=== PATIENT | female | born 1935 | race Caucasian/White ===

== ENCOUNTER → 2018-06-04 | Outpatient (CLI) | payer MEDICARE ==
--- NOTE | 2018-06-12 07:54 | MM ---
Reason for exam: screening (asymptomatic). Last mammogram was performed 4 years and 8 months ago. History: Patient is postmenopausal. Benign excisional biopsy of the left breast. Took estrogen for 10 years. Physical Findings: A clinical breast exam by your physician is recommended on an annual basis and results should be correlated with mammographic findings. MG 3D Screening Mammo W/Cad Bilateral CC and MLO view(s) were taken. Prior study comparison: October 15, 2013, mammogram, performed at [place]. September 18, 2012, mammogram, performed at [place]. The breast tissue is extremely dense which could obscure a lesion on mammography. No significant changes when compared with prior studies. ASSESSMENT: Benign, BI-RAD 2 RECOMMENDATION: Routine screening mammogram of both breasts in 1 year.
== END | disposition home or self-care (01) ==
LOC: RADMAMWWP 12:25
PROVIDERS: ATTEND Family Medicine
DX: Z12.31 Encounter for screening mammogram for malignant neoplasm of breast (principal)
CPT/HCPCS: 77063; 77067

== ENCOUNTER → 2018-06-30 | Outpatient (CLI) | payer MEDICARE ==
--- NOTE | 2018-06-30 13:56 | US ---
EXAMINATION TYPE: US carotid duplex BILAT DATE OF EXAM: 06/30/2018 COMPARISON: NONE CLINICAL HISTORY: R55 Syncope and Collapse. EXAM MEASUREMENTS: RIGHT: Peak Systolic Velocity (PSV) cm/sec ----- Right CCA: 84.2 ----- Right ICA: 70.6 ----- Right ECA: 63.3 ICA/CCA ratio: 0.8 RIGHT: End Diastole cm/sec ----- Right CCA: 20.4 ----- Right ICA: 28.7 ----- Right ECA: 8.7 LEFT: Peak Systolic Velocity (PSV) cm/sec ----- Left CCA: 70.9 ----- Left ICA: 65.7 ----- Left ECA: 7.0 ICA/CCA ratio: 0.9 LEFT: End Diastole cm/sec ----- Left CCA: 19.6 ----- Left ICA: 25.1 ----- Left ECA: 7.0 VERTEBRALS (direction of flow): Right Vertebral: Antegrade Left Vertebral: Antegrade Rhythm: Normal grayscale, color Doppler, spectral Doppler imaging performed of the carotid arteries. Waveform analys is does not show significant stenosis. Minimal plaque with no significant velocity elevations. IMPRESSION: No hemodynamic significant stenosis of the proximal internal carotid arteries bilaterall y by Doppler criteria, an indirect measurement of carotid stenosis
== END ==
LOC: RADUSWWP 12:50
PROVIDERS: ATTEND Family Medicine
DX: R55 Syncope and collapse (principal)
CPT/HCPCS: 93880

== ENCOUNTER → 2018-09-16 | Outpatient (CLI) | payer MEDICARE | END | disposition home or self-care (01) | LOC: NEUROMAIN 06:46 | PROVIDERS: ATTEND Psychiatry & Neurology Neurology | DX: Z53.9 Procedure and treatment not carried out, unspecified reason (principal) ==

== ENCOUNTER → 2018-09-28 | Outpatient (CLI) | payer MEDICARE ==
--- NOTE | 2018-09-28 19:24 | MR ---
EXAMINATION TYPE: MR brain and iac wo/w con DATE OF EXAM: 09/28/2018 COMPARISON: None HISTORY: Headaches, Dizziness, Andrei hearing loss TECHNIQUE: Multiplanar, multisequence images of the brain and brainstem, internal auditory canals is performed w ithout and with IV contrast, utilizing 5 mL intravenous Gadavist . Small [id number] imaging throug h the internal auditory canals FINDINGS: Diffusion weighted images demonstrate no evidence of a recent infarct or other diffusion ab normality. There is no extra-axial fluid collection. Periventricular confluent and scattered deep w raghav matter, subcortical hyperintensities are present on inversion recovery and T2-weighted sequences , 510 lesions are present, the largest lesion measures approximately 4 to 5 mm in the parietal lobe o n image 19 on the left. The ventricular system and cisternal spaces are normal in size and appearance . The brain volume is age appropriate, there is age-related atrophy. Midline structures demonstrate normal morphology. The craniocervical junction appears within normal limits. Post contrast images demonstrate no abnormal enhancement. The dural venous sinuses appear pa tent. The visualized sinuses are remarkable for mucoperiosteal thickening in the maxillary sinus on t he left, ethmoid air cells and the globes are intact. Degenerative disc disease noted incidentally in the cervical spine. IMPRESSION: Age-related changes of atrophy and probable chronic small vessel ischemia. Mild sinus dis ease. Degenerative disc changes in the cervical spine suspected.
== END | disposition home or self-care (01) ==
LOC: RADMRIMAIN 16:42
PROVIDERS: ATTEND Psychiatry & Neurology Neurology
DX: G31.1 Senile degeneration of brain, not elsewhere classified (principal); J32.9 Chronic sinusitis, unspecified
CPT/HCPCS: 82565; 70553; 36415; A9585

== ENCOUNTER → 2019-01-26 | Outpatient (CLI) | payer MEDICARE ==
--- NOTE | 2019-01-26 12:47 | US ---
EXAMINATION TYPE: US venous doppler duplex LE RT DATE OF EXAM: 01/26/2019 12:25 PM COMPARISON: NONE CLINICAL HISTORY: Edema R60.0. SIDE PERFORMED: Right TECHNIQUE: The lower extremity deep venous system is examined utilizing real time linear array sonog cindy with graded compression, doppler sonography and color-flow sonography. VESSELS IMAGED: External Iliac Vein (EIV) Common Femoral Vein Deep Femoral Vein Greater Saphenous Vein * Femoral Vein Popliteal Vein Proximal Calf Veins (* superficial vessels) Grayscale, color doppler, spectral doppler imaging performed of the deep veins of the right lower ext remity. There is normal flow, compressibility, vascular waveforms. Right Leg: Negative for DVT IMPRESSION: No sonographic evidence of deep venous thrombosis within the right lower extremity.
== END | disposition home or self-care (01) ==
LOC: RADUSWWP 11:58
PROVIDERS: ATTEND Family Medicine
DX: R60.0 Localized edema (principal)

== ENCOUNTER → 2019-08-17 | Outpatient (CLI) | payer MEDICARE | END | disposition home or self-care (01) | LOC: RADECHMAIN 12:27 | PROVIDERS: ATTEND Family Medicine | DX: R00.1 Bradycardia, unspecified (principal); R00.0 Tachycardia, unspecified | CPT/HCPCS: 93225; 93226 ==

== ENCOUNTER → 2019-09-07 | Outpatient (CLI) | payer MEDICARE ==
--- NOTE | 2019-09-07 16:10 | US ---
EXAMINATION TYPE: US kidneys/renal and bladder DATE OF EXAM: 09/07/2019 COMPARISON: NONE CLINICAL HISTORY: N13.30 Unspecified hydronephrosis. back pain EXAM MEASUREMENTS: Right Kidney: 9.6 x 4.9 x 5.3 cm Left Kidney: 8.8 x 4.0 x 5.1 cm Short waisted elderly female with back pain and limited mobility Right Kidney: No hydronephrosis or masses seen Left Kidney: small in size, hydronephrosis seen with no obvious obstruction Bladder: wnl Bilateral Jets seen: left No nephrolithiasis is seen. No masses are identified. The urinary bladder is anechoic. Bilateral u reteral jets are not seen. IMPRESSION: Moderate left hydronephrosis. No obstructing process seen. CT urogram could evaluate for ureteral obstruction. Slightly asymmetric size of the left kidney and therefore hydronephrosis may be chronic leading to renal atrophy.
== END | disposition home or self-care (01) ==
LOC: RADUSWWP 15:27
PROVIDERS: ATTEND Family Medicine
DX: N13.30 Unspecified hydronephrosis (principal)
CPT/HCPCS: 76770

== ENCOUNTER → 2019-09-13 | Outpatient (CLI) | payer MEDICARE ==
--- NOTE | 2019-09-14 07:47 | CT ---
EXAMINATION TYPE: CT abdomen pelvis wo con DATE OF EXAM: 09/13/2019 COMPARISON: Renal ultrasound dated 09/07/2019 HISTORY: flank pain CT DLP: 228.5 mGycm Automated exposure control for dose reduction was used. TECHNIQUE: Helical acquisition of images was performed from the lung bases through the pelvis. FINDINGS: Exam is markedly limited by patient motion. There is also limitation in evaluation of the s olid viscera and hollow viscera by lack of intravenous and oral contrast. LUNG BASES: Minimal scarring and/or atelectasis in the right middle lobe and lingula. LIVER/GB: Unremarkable unenhanced morphology. Gallbladder is not discretely seen and could be contrac apurva or surgically absent. PANCREAS: Limited evaluation. No gross evidence of ductal dilatation. SPLEEN: Slightly atrophic. ADRENALS: No nodules or thickening. KIDNEYS: There is moderate left-sided hydronephrosis. There is some patient motion and large amount o f bowel loops adjacent to the ureter that make delineation of the mid to distal ureter difficult. The re is a possible 5 mm distal calculus at the level of S2 that could be the etiology of the left-sided hydronephrosis. There is some cortical thinning indicating acute on chronic component. The proximal ureter is dilated. No gross evidence of nephrolithiasis of the kidneys. Again exam is markedly limite d by patient motion. FREE AIR: No free air is visualized ADENOPATHY: Markedly limited evaluation for adenopathy given marked degree colonic fecal stasis and relative paucity of intra-abdominal fat as well as lack of intravenous contrast. URINARY BLADDER: No calculi seen in the urinary bladder. OSSEOUS STRUCTURES: Diffuse osseous demineralization. Sclerotic foci within the left acetabulum and left hemipelvis, likely bone islands. Extensive degenerative changes of the lumbar spine with levosco liosis. Grade 1 anterolisthesis of L4 on L5 is likely on a degenerative basis. Extensive facet arthro ever. Straightening of usual lumbar lordosis may be medially on the basis of muscular sprain/spasm o r patient positioning. Moderate degenerative changes of the hips. BOWEL: Surgical clips are noted adjacent to the cecum and are likely on the basis of appendectomy. T here is severe degree colonic fecal stasis and small bowel feces sign indicative of delayed transit t hrough the small bowel. OTHER: Uterus appears surgically absent. IMPRESSION: 1. REDEMONSTRATION OF MODERATE HYDRONEPHROSIS ON THE LEFT WITH SOME CORTICAL RENAL THINNING INDICATIV E OF ACUTE ON CHRONIC COMPONENT. THERE IS MARKED LIMITATION IN EVALUATION OF THE DISTAL URETER DUE TO PATIENT MOTION AND THE URETER CANNOT BE DEFINITIVELY FOLLOWED. THERE IS A POSSIBLE 5 MM DISTAL OBSTR UCTING CALCULUS VERSUS ADJACENT VASCULAR CALCIFICATION. 2. MARKED DEGREE COLONIC FECAL STASIS AND SMALL BOWEL FECES SIGN INDICATIVE OF OVERALL INCREASED RUIZ SIT TIME THROUGHOUT THE BOWEL. 3. 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
== END | disposition home or self-care (01) ==
LOC: RADCTMAIN 17:31
PROVIDERS: ATTEND Urology
DX: N13.30 Unspecified hydronephrosis (principal); N28.89 Other specified disorders of kidney and ureter; K59.8 Other specified functional intestinal disorders; Z88.5 Allergy status to narcotic agent; Z88.6 Allergy status to analgesic agent
CPT/HCPCS: 74176

== ENCOUNTER → 2019-10-20 | Outpatient (CLI) | payer MEDICARE ==
--- NOTE | 2019-10-20 15:16 | BD ---
EXAMINATION TYPE: Axial Bone Density DATE OF EXAM: 10/20/2019 COMPARISON: NONE CLINICAL HISTORY: Z 78.0 Height: 4 FT 11 1/2 IN Weight: 112 FRAX RISK QUESTIONS: Alcohol (3 or more units per day): NO Family History (Parent hip fracture): NO Glucocorticoids (More than 3mos): NO (Ex: prednisone, prednisolone, methylprednisolone, dexamethasone, and hydrocortisone). History of Fracture in Adulthood: NO Secondary Osteoporosis: 1. Type 1 Diabetes: NO 2. Hyperthyroidism: NO 3. Menopause before 45: YES 4. Malnutrition: NO 5. Chronic liver disease: NO Rheumatoid Arthritis: NO Current Tobacco Use: NO RISK FACTORS HISTORY OF: Active: YES Postmenopausal woman: AGE 47 Lost more than 2 inches in height since high school: YES MEDICATIONS: Thyroid Medications: YES Which medication: LEVOTHYROXINE How Long: LONG TIME Osteoporosis Medications: Which medication: How Long: Additional Medications: DOES NOT KNOW MEDS LEVOTHYROXINE Additional History: POOR HISTORIAN EXAM MEASUREMENTS: Bone mineral densitometry was performed using the [employer] System. Bone mineral density as measured about the Lumbar spine is: ----- L1-L4(G/cm2): 1.183 T Score Values are as follows: ----- L2: -1.4 ----- L3: 1.2 ----- L4: 3.0 ----- L1-L4: 0.0 BASELINE Bone mineral density about the R hip (g/cm2): 0.704 Bone mineral density about the L hip (g/cm2): 0.750 T Score values are as follows: -----R Neck: -2.4 -----L Neck: -2.1 -----R Total: -1.8 -----L Total: -1.7 BASELINE IMPRESSION: Osteopenia (T Score between -2.5 and -1). There is slightly increased risk of fracture and the patient may be considered for treatment. Re-Screen 2-5 years. NOTE: T-SCORE=SD OF THE YOUNG ADULT MEAN.
--- NOTE | 2019-10-25 09:26 | MM ---
Reason for exam: screening (asymptomatic). Last mammogram was performed 1 year and 5 months ago. History: Patient is postmenopausal. Benign excisional biopsy of the left breast. Took estrogen for 10 years. Physical Findings: A clinical breast exam by your physician is recommended on an annual basis and results should be correlated with mammographic findings. MG 3D Screening Mammo W/Cad Bilateral CC and MLO view(s) were taken. Prior study comparison: June 04, 2018, bilateral MG 3d screening mammo w/cad. October 15, 2013, mammogram, performed at [place]. Benign appearing bilateral calcifications. No suspicious abnormality. No significant changes when compared with prior studies. ASSESSMENT: Benign, BI-RAD 2 RECOMMENDATION: Routine screening mammogram of both breasts in 1 year.
== END | disposition home or self-care (01) ==
LOC: RADMAMWWP 12:59
PROVIDERS: ATTEND Family Medicine
DX: Z12.31 Encounter for screening mammogram for malignant neoplasm of breast (principal); M85.80 Other specified disorders of bone density and structure, unspecified site; Z78.0 Asymptomatic menopausal state
CPT/HCPCS: 77063; 77067; 77080

== ENCOUNTER → 2019-11-15 | Day surgery (SDC) | payer MEDICARE ==
[2019-11-09 11:29] VITALS: BMI 22.6
--- NOTE | 2019-11-12 16:35 | P.HPIHPCON ---
History of Present Illness H&P Date: 11/22/19 Chief Complaint: left hydronephrosis Ms. Pandya is an 84-year-old female with history of left-sided hydronephrosis. She underwent a cystoscopy demonstrated was a bladder tumor along the posterior bladder wall. Pathology showed high-grade TA bladder cancer . She also underw ent a left retrograde pyelogram that showed severe narrowing at the UPJ with a tortuous proximal ureter. She had complete obstruction at that point with limited contrast going up to the kidney. The wire could not be advanced to the renal pelvis and attempts to pass ureteroscopy was unsuccessful. Given her history of bladder cancer and high-grade obstruction on the left side. I Discussed with her that there is potential that this could be a malignant obstruction. I discussed with her at this point I recommend that she undergoes a left nephrostomy tube with antegrade nephrostogram and will send a cytology from the nephrostomy tube. I discussed pending the finding of the antegrade nephrostogram and the cytology she might require a PCNL to better visualize that area. I also Discussed with her the risk from nephrostomy tube placement which include but not limited to bleeding infection, injury to nearby organs. She understood all the risk and agreed to proceed with left nephrostomy tube placement Consent for Procedure: I have explained the operation/procedure to the patient, including the risks, benefits, side effects, alternative therapies (including not receiving the proposed treatment or service), the likelihood of the patient achieving his/her goals, and potential recuperation problems for the procedure/sedation/analgesia, as well as any blood products, if indicated. I also explained to the patient the risks, benefits and side effects of the alternatives, as well as the risks related to not receiving the proposed procedure, care, treatment, or services. - Constitutional Constitutional: Denies chills, Denies fever - Cardiovascular Cardiovascular: Denies chest pain, Denies leg edema - Respiratory Respiratory: Denies cough with sputum, Denies dyspnea Past Medical History Past Medical History: Osteoarthritis (OA), Sleep Apnea/CPAP/BIPAP Additional Past Medical History / Comment(s): SOME SHORT TERM MEMORY PROBLEMS STARTING ", C PAP MACHINE , " SOME KIDNEY PROBLEMS WITH PAIN -HAVING A TUBE PUT IN " History of Any Multi-Drug Resistant Organisms: None Reported Past Surgical History: Hysterectomy Additional Past Surgical History / Comment(s): CATARACT SURGERY- BILATERAL, C SECTION X2 Past Anesthesia/Blood Transfusion Reactions: No Reported Reaction Smoking Status: Former smoker - Past Family History Mother Family Medical History: No Reported History Medications and Allergies Home Medications Medication Instructions Recorded Confirmed Type Donepezil [Aricept] 5 mg PO HS 11/09/19 11/09/19 History Escitalopram [Lexapro] 5 mg PO 1900 11/09/19 11/09/19 History Levothyroxine Sodium [Synthroid] 50 mcg PO DAILY 11/09/19 11/09/19 History Meloxicam [Mobic] 15 mg PO DAILY 11/09/19 11/09/19 History Omeprazole 20 mg PO 1730 11/09/19 11/09/19 History Allergies Allergy/AdvReac Type Severity Reaction Status Date / Time acetaminophen [From Percocet] Allergy Nausea & Verified 11/09/19 11:00 Vomiting codeine Allergy Nausea & Verified 11/09/19 11:00 Vomiting meperidine [From Demerol] Allergy Nausea & Verified 11/09/19 11:00 Vomiting oxycodone [From Percocet] Allergy Nausea & Verified 11/09/19 11:00 Vomiting Surgical - Exam - General well developed, well nourished, no distress - Respiratory normal expansion, normal respiratory effort - Abdomen Abdomen: soft, non tender - Psychiatric oriented to time, oriented to person, oriented to place Assessment and Plan Assessment: Left sided hydronephrosis will undergo left nephrostomy tube placement
[~2019-11-15] MED LIST: IV FLUID CONTINUATION 400 ML IV ONE; fentaNYL (PF) 50 MCG/ML 2 ML AMP IV ONE
[2019-11-15 10:21] VITALS: TEMP 97.2
[2019-11-15 10:42] LABS: Basophils # (A) 0.1 k/uL (0-0.2); Basophils % (A) 2 %; Eosinophils # (A) 0.2 k/uL (0-0.7); Eosinophils % (A) 3 %; HCT 36.6 % (34.0-46.0); HGB 11.8 gm/dL (11.4-16.0); Lymphocytes % (A) 17 %; MCH 27.6 pg (25.0-35.0); MCHC 32.3 g/dL (31.0-37.0); MCV 85.5 fL (80.0-100.0); Mean Platelet Volume 7.2; Monocytes # (A) 0.5 k/uL (0-1.0); Monocytes % (A) 9 %; Neutrophils # (A) 3.9 k/uL (1.3-7.7); Neutrophils % (A) 67 %; Platelet Count 382 k/uL (150-450); RBC 4.28 m/uL (3.80-5.40); RDW 14.7 % (11.5-15.5); WBC 5.8 k/uL (3.8-10.6)
[2019-11-15 10:46] LABS: Prothrombin Time 10.4 sec (9.0-12.0)
[2019-11-15 10:47] LABS: Calcium 9.8 mg/dL (8.4-10.2); Potassium 4.1 mmol/L (3.5-5.1)
[2019-11-15 12:10] VITALS: BP 168/78; PULSE 56; RESP 18
--- NOTE | 2019-11-15 13:14 | US ---
ULTRASOUND LIMITED PRIOR TO LEFT NEPHROSTOMY: CLINICAL HISTORY: High-grade left obstruction COMPARISON: 09/13/2019, 09/07/2019 FINDINGS: The procedure was explained to the patient. The risks, complications, benefits and alternatives were discussed and any questions were answered. Informed consent was obtained. Patient was placed prone on the ultrasound table and prepped and draped in the usual sterile fashion. Pulmonary ultrasound de monstrated minimal hydronephrosis markedly improved from the prior exam.. Case discussed with referri physician and patient and procedure deferred. IMPRESSION: 1. Marked improvement in the degree of hydronephrosis with minimal hydronephrosis on today's exam.
== END ==
LOC: OR 09:43
PROVIDERS: ATTEND Radiology Diagnostic Radiology
DX: N13.0 Hydronephrosis with ureteropelvic junction obstruction (principal); Z53.9 Procedure and treatment not carried out, unspecified reason; C67.4 Malignant neoplasm of posterior wall of bladder; M19.90 Unspecified osteoarthritis, unspecified site; R41.3 Other amnesia; G47.30 Sleep apnea, unspecified; Z99.89 Dependence on other enabling machines and devices; Z90.710 Acquired absence of both cervix and uterus; Z98.41 Cataract extraction status, right eye; Z98.42 Cataract extraction status, left eye; Z98.890 Other specified postprocedural states; Z87.891 Personal history of nicotine dependence; Z79.899 Other long term (current) drug therapy; Z79.890 Hormone replacement therapy; Z79.1 Long term (current) use of non-steroidal anti-inflammatories (NSAID); Z88.5 Allergy status to narcotic agent
CPT/HCPCS: 80048; 85025; 85610; J0690; J3010; 76942; 88108

== ENCOUNTER → 2020-10-13 | Outpatient (CLI) | payer MEDICARE | END | disposition home or self-care (01) | LOC: LABWHC1 10-12 09:44 | PROVIDERS: ATTEND Nurse Practitioner | DX: Z03.818 Encounter for observation for suspected exposure to other biological agents ruled out (principal) | CPT/HCPCS: U0003; C9803 ==

== ENCOUNTER 2020-12-12 15:34 | Emergency (ER) | payer MEDICARE ==
[2020-12-12 15:39] VITALS: TEMP 98.3
[2020-12-12] MEDS ORDERED: ACETAMINOPHEN TAB 500 MG TAB PO STA (16:15)
--- NOTE | 2020-12-12 17:06 | ED ---
Extremity Problem HPI - General Chief complaint: Extremity Problem,Nontraumatic Stated complaint: Lft hip pain Time Seen by Provider: 12/12/20 16:00 Source: patient, RN notes reviewed Mode of arrival: ambulatory Limitations: no limitations - History of Present Illness Initial comments: 85-year-old female presents emergency Department with chief complaint of left hip pain. Patient states his pain started today. Patient states that she went to walk and states that her tremendously in her left upper leg, hip region. She does admit that she had knee surgery last year and Dr. Carrasco. Patient states that she does have a long history of back pain denies any bowel bladder incontinence or retention or saddle anesthesias or lower shunted paresthesias. She states that she has no pain at rest she states that she can move her leg freely but states only when she puts weight she has pain on the outer aspect of her hip. Patient denies any complaints. Patient was ambulatory upon arrival to emergency department. - Related Data Home Medications Medication Instructions Recorded Confirmed Donepezil [Aricept] 5 mg PO HS 11/09/19 12/12/20 Escitalopram [Lexapro] 5 mg PO DAILY@1200 11/09/19 12/12/20 Levothyroxine Sodium [Synthroid] 50 mcg PO DAILY 11/09/19 12/12/20 Meloxicam [Mobic] 15 mg PO HS 11/09/19 12/12/20 Alendronate Sodium [Fosamax] 70 mg PO SA 12/12/20 12/12/20 Atorvastatin [Lipitor] 10 mg PO DAILY@1200 12/12/20 12/12/20 Cetirizine HCl [Zyrtec] 5 mg PO DAILY 12/12/20 12/12/20 Previous Rx's Medication Instructions Recorded Ibuprofen [Motrin] 600 mg PO Q8HR PRN #20 tab 12/12/20 Allergies Allergy/AdvReac Type Severity Reaction Status Date / Time acetaminophen [From Percocet] Allergy Nausea & Verified 12/12/20 17:45 Vomiting codeine Allergy Nausea & Verified 12/12/20 17:45 Vomiting meperidine [From Demerol] Allergy Nausea & Verified 12/12/20 17:45 Vomiting oxycodone [From Percocet] Allergy Nausea & Verified 12/12/20 17:45 Vomiting Review of Systems ROS Statement: Those systems with pertinent positive or pertinent negative responses have been documented in the HPI. ROS Other: All systems not noted in ROS Statement are negative. Past Medical History Past Medical History: Osteoarthritis (OA), Sleep Apnea/CPAP/BIPAP Additional Past Medical History / Comment(s): SOME SHORT TERM MEMORY PROBLEMS STARTING ", C PAP MACHINE , " SOME KIDNEY PROBLEMS WITH PAIN -HAVING A TUBE PUT IN " History of Any Multi-Drug Resistant Organisms: None Reported Past Surgical History: Hysterectomy Additional Past Surgical History / Comment(s): CATARACT SURGERY- BILATERAL, C SECTION X2 Past Anesthesia/Blood Transfusion Reactions: No Reported Reaction Past Psychological History: Anxiety Smoking Status: Never smoker Past Alcohol Use History: Rare Past Drug Use History: None Reported - Past Family History Mother Family Medical History: No Reported History General Exam Limitations: no limitations General appearance: alert, in no apparent distress Head exam: Present: atraumatic, normocephalic, normal inspection Eye exam: Present: normal appearance, PERRL, EOMI. Absent: scleral icterus, c onjunctival injection, periorbital swelling ENT exam: Present: normal exam, normal oropharynx, mucous membranes moist Neck exam: Present: normal inspection, full ROM. Absent: tenderness, meningismus, lymphadenopathy Respiratory exam: Present: normal lung sounds bilaterally. Absent: respiratory distress, wheezes, rales, rhonchi, stridor Cardiovascular Exam: Present: regular rate, normal rhythm, normal heart sounds. Absent: systolic murmur, diastolic murmur, rubs, gallop, clicks GI/Abdominal exam: Present: soft, normal bowel sounds. Absent: distended, tenderness, guarding, rebound, rigid Extremities exam: Present: other (Lower extremity pulses are equal bilaterally, equal color equal warmth there is no Tenderness no swelling noted patient does have localized tenderness to left hip and with logrolling, tenderness in the low back over the buttocks region) Back exam: Present: full ROM, tenderness, paraspinal tenderness. Absent: vertebral tenderness Neurological exam: Present: reflexes normal. Absent: motor sensory deficit Skin exam: Present: warm, dry, intact, normal color. Absent: rash Course Vital Signs 12/12/20 15:36 Temperature 98.3 F Pulse Rate 66 Respiratory 22 Rate Blood Pressure 161/79 O2 Sat by Pulse 99 Oximetry Medical Decision Making - Medical Decision Making 85-year-old presented for left hip pain. Patient has tenderness over the lateral portion of her left hip consistent with bursitis. Patient x-rays were negative she is neurovascularly intact. Patient states the Tylenol did help her pain. She'll be started on anti-inflammatories will follow-up with her orthopedic surgeon return for any worsening changing symptoms. Disposition Clinical Impression: Hip bursitis, left Disposition: HOME SELF-CARE Condition: Stable Instructions (If sedation given, give patient instructions): Hip Bursitis (ED) Additional Instructions: Please return to the Emergency Department if symptoms worsen or any other concerns. Prescriptions: Ibuprofen [Motrin] 600 mg PO Q8HR PRN #20 tab PRN Reason: Pain Is patient prescribed a controlled substance at d/c from ED?: No Referrals: Nba Poole MD [Primary Care Provider] - 1-2 days Chris Carrasco MD [REFERRING] - 1-2 days Time of Disposition: 18:08
--- NOTE | 2020-12-12 17:26 | XR ---
EXAMINATION TYPE: XR lumbar spine 2 or 3V DATE OF EXAM: 12/12/2020 COMPARISON: NONE HISTORY: Back pain TECHNIQUE: 3 views FINDINGS: There is mild lumbar levoscoliosis. There is multilevel degenerative disc space narrowing w ith spur formation. There is no significant compression deformity. Sacroiliac joints are intact. IMPRESSION: Multilevel spondylosis with levoscoliotic mild deformity. No significant compression frac ture seen. No significant change compared to CT scan of 09/13/2019
--- NOTE | 2020-12-12 17:27 | XR ---
EXAMINATION TYPE: XR Hip LT and AP Pelvis DATE OF EXAM: 12/12/2020 COMPARISON: NONE HISTORY: Hip pain TECHNIQUE: 3 views FINDINGS: The pelvic ring is intact. Proximal left femur and hip joint appear intact. There is no yan dence of a fracture. Sacroiliac joints appear intact. IMPRESSION: Negative pelvis and left hip exam. No fracture seen.
[2020-12-12] MEDS ORDERED: dexAMETHasone 4 MG TAB PO STA (18:07)
[2020-12-12] MEDS ORDERED: IBUPROFEN 600 MG TAB PO STA (18:07)
[2020-12-12 18:37] VITALS: BP 148/77; PULSE 64; RESP 18
== END 2020-12-12 18:37 | disposition home or self-care (01) ==
LOC: EC 15:34
DX: M70.72 Other bursitis of hip, left hip (principal); F41.9 Anxiety disorder, unspecified; G47.33 Obstructive sleep apnea (adult) (pediatric); M19.90 Unspecified osteoarthritis, unspecified site; Z79.1 Long term (current) use of non-steroidal anti-inflammatories (NSAID); Z79.899 Other long term (current) drug therapy; Z88.5 Allergy status to narcotic agent; Z88.6 Allergy status to analgesic agent; Z88.8 Allergy status to other drugs, medicaments and biological substances; Z99.89 Dependence on other enabling machines and devices; Z98.42 Cataract extraction status, left eye; Z98.41 Cataract extraction status, right eye
CPT/HCPCS: 72100; 73502; 99283; J8540

== ENCOUNTER 2021-07-02 18:18 | Emergency (ER) | payer MEDICARE ==
[2021-07-02 18:36] VITALS: BP 126/76; PULSE 60; RESP 18; TEMP 97.8
[2021-07-02] MEDS ORDERED: DIPH,PERTUS(ACELL)TETVAC-LF 0.5 ML VIAL IM ONE (18:41)
--- NOTE | 2021-07-02 18:42 | ED ---
General Adult HPI - General Chief complaint: Fall Stated complaint: fall Time Seen by Provider: 07/02/21 18:22 Source: patient, family, EMS Mode of arrival: EMS Limitations: no limitations - History of Present Illness Initial comments: Patient presents to the ED by ambulance for evaluation status post falling. Patient's son is at bedside with her in the ER. Patient states that she had a mechanical fall while turning with her walker, and she states that she fell backwards hitting the back of her head against the wall. Patient is currently only complaining of having a posterior headache. Patient was placed in a c- collar by EMS. Patient is unsure of LOC. Patient has sustained an occipital scalp laceration per EMS. Patient is unsure of her last tetanus shot. Patient denies focal numbness/weakness/neuro deficit, visual changes, speech difficulty, neck/back/extremity pain, chest pain, dyspnea, dizziness, nausea or vomiting, abdominal pain, or any other symptoms or complaints. Son states that the patient is on anticoagulant medication, but he is not sure which one. - Related Data Home Medications Medication Instructions Recorded Confirmed Donepezil [Aricept] 5 mg PO HS 11/09/19 12/12/20 Escitalopram [Lexapro] 5 mg PO DAILY@1200 11/09/19 12/12/20 Levothyroxine Sodium [Synthroid] 50 mcg PO DAILY 11/09/19 12/12/20 Meloxicam [Mobic] 15 mg PO HS 11/09/19 12/12/20 Alendronate Sodium [Fosamax] 70 mg PO SA 12/12/20 12/12/20 Atorvastatin [Lipitor] 10 mg PO DAILY@1200 12/12/20 12/12/20 Cetirizine HCl [Zyrtec] 5 mg PO DAILY 12/12/20 12/12/20 Previous Rx's Medication Instructions Recorded Ibuprofen [Motrin] 600 mg PO Q8HR PRN #20 tab 12/12/20 Allergies Allergy/AdvReac Type Severity Reaction Status Date / Time acetaminophen [From Percocet] Allergy Nausea & Verified 07/02/21 18:31 Vomiting codeine Allergy Nausea & Verified 07/02/21 18:31 Vomiting meperidine [From Demerol] Allergy Nausea & Verified 07/02/21 18:31 Vomiting oxycodone [From Percocet] Allergy Nausea & Verified 07/02/21 18:31 Vomiting Review of Systems ROS Statement: Those systems with pertinent positive or pertinent negative responses have been documented in the HPI. ROS Other: All systems not noted in ROS Statement are negative. Past Medical History Past Medical History: Osteoarthritis (OA), Sleep Apnea/CPAP/BIPAP Additional Past Medical History / Comment(s): SOME SHORT TERM MEMORY PROBLEMS STARTING ", C PAP MACHINE , " SOME KIDNEY PROBLEMS WITH PAIN -HAVING A TUBE PUT IN " History of Any Multi-Drug Resistant Organisms: None Reported Past Surgical History: Hysterectomy Additional Past Surgical History / Comment(s): CATARACT SURGERY- BILATERAL, C SECTION X2 Past Anesthesia/Blood Transfusion Reactions: No Reported Reaction Past Psychological History: Anxiety Smoking Status: Never smoker Past Alcohol Use History: Rare Past Drug Use History: None Reported - Past Family History Mother Family Medical History: No Reported History General Exam Limitations: no limitations General appearance: alert, in no apparent distress Head exam: Present: other (Left occipital swelling and tenderness with overlying abrasion is noted on examination) Eye exam: Present: normal appearance, PERRL, EOMI ENT exam: Present: mucous membranes moist Neck exam: Present: other (C-collar is in place; trachea is in midline; no step- off deformity is appreciated). Absent: tenderness Respiratory exam: Present: normal lung sounds bilaterally. Absent: respiratory distress, wheezes, rales, rhonchi, stridor, chest wall tenderness Cardiovascular Exam: Present: regular rate, normal rhythm, normal heart sounds, other (Normal radial pulses bilaterally) GI/Abdominal exam: Present: soft. Absent: distended, tenderness, guarding Extremities exam: Present: full ROM, other (Pelvis is stable and nontender; patient has full range of motion of bilateral hips; an abrasion with surrounding tenderness is noted just proximal to the patient's left elbow laterally). Absent: pedal edema Back exam: Present: normal inspection, other (No step-off deformity is appreciated). Absent: tenderness Neurological exam: Present: alert, oriented X3, CN II-XII intact. Absent: motor sensory deficit Psychiatric exam: Present: normal affect, normal mood Skin exam: Present: warm, dry, normal color Course Vital Signs 07/02/21 18:24 Temperature 97.8 F Pulse Rate 60 Respiratory 18 Rate Blood Pressure 126/76 O2 Sat by Pulse 98 Oximetry - Reevaluation(s) Reevaluation #1: 07/02/21 20:23 Patient denies development of any new pain or symptoms while in the ED. Patient remains alert and breathing comfortably. Patient and son are aware the patient's test results/imaging findings, and they both feel comfortable with the patient going home at this time. Patient and son were counseled about head injuries, contusions and abrasions. They were clearly explained return and follow-up instructions. They were instructed to have a low threshold for return to the ED should the patient's symptoms worsen. There were also instructed for the patient to follow up closely with her primary care provider. Patient feels comfortable with this plan. Medical Decision Making - Medical Decision Making Patient's imaging studies are negative for acute traumatic injury. Patient's labs are fairly unremarkable. Patient's tetanus was updated in the ED. Patient's wounds were cleaned and dressed by ED nursing staff. Will discharge patient home with her son at this time. - Lab Data Result diagrams: 07/02/21 18:46 07/02/21 18:46 Lab Results 07/02/21 07/02/21 07/02/21 Range/Units 18:46 18:46 18:46 WBC 9.1 (3.8-10.6) k/uL RBC 3.86 (3.80-5.40) m/uL Hgb 11.6 (11.4-16.0) gm/dL Hct 34.0 (34.0-46.0) % MCV 88.0 (80.0-100.0) fL MCH 30.0 (25.0-35.0) pg MCHC 34.0 (31.0-37.0) g/dL RDW 13.4 (11.5-15.5) % Plt Count 371 (150-450) k/uL MPV 6.9 Neutrophils % 73 % Lymphocytes % 13 % Monocytes % 7 % Eosinophils % 3 % Basophils % 1 % Neutrophils # 6.7 (1.3-7.7) k/uL Lymphocytes # 1.2 (1.0-4.8) k/uL Monocytes # 0.7 (0-1.0) k/uL Eosinophils # 0.3 (0-0.7) k/uL Basophils # 0.1 (0-0.2) k/uL PT 10.5 (9.0-12.0) sec INR 1.0 (<1.2) APTT 24.8 (22.0-30.0) sec Sodium 133 L (137-145) mmol/L Potassium 4.4 (3.5-5.1) mmol/L Chloride 104 (98-107) mmol/L Carbon Dioxide 21 L (22-30) mmol/L Anion Gap 8 mmol/L BUN 39 H (7-17) mg/dL Creatinine 1.16 H (0.52-1.04) mg/dL Est GFR (CKD-EPI)AfAm 50 (>60 ml/min/1.73 sqM) Est GFR (CKD-EPI)NonAf 44 (>60 ml/min/1.73 sqM) Glucose 124 H (74-99) mg/dL Calcium 8.8 (8.4-10.2) mg/dL Total Bilirubin 0.4 (0.2-1.3) mg/dL AST 33 (14-36) U/L ALT 14 (4-34) U/L Alkaline Phosphatase 130 H (38-126) U/L Total Protein 6.0 L (6.3-8.2) g/dL Albumin 3.5 (3.5-5.0) g/dL - Radiology Data Radiology results: report reviewed (Noncontrast CT brain and cervical spine are both negative for acute findings; chest, pelvis and left elbow x-rays are all negative for acute findings) Disposition Clinical Impression: Fall, Head injury, Contusion of upper limb, left, Abrasion of left upper extremity, Scalp abrasion Disposition: HOME SELF-CARE Condition: Stable Instructions (If sedation given, give patient instructions): Abrasion (ED), Fall Prevention (ED), Head Injury (ED), Contusion in Adults (ED) Additional Instructions: Return to the ER immediately should you develop new or worsening pain or symptoms. Follow up closely with your primary care provider. Is patient prescribed a controlled substance at d/c from ED?: No Referrals: Nba Poole MD [Primary Care Provider] - 1-2 days Time of Disposition: 20:28
[2021-07-02 18:57] LABS: Basophils # (A) 0.1 k/uL (0-0.2); Basophils % (A) 1 %; Eosinophils # (A) 0.3 k/uL (0-0.7); Eosinophils % (A) 3 %; HGB 11.6 gm/dL (11.4-16.0); Lymphocytes # (A) 1.2 k/uL (1.0-4.8); Lymphocytes % (A) 13 %; Mean Platelet Volume 6.9; Monocytes # (A) 0.7 k/uL (0-1.0); Monocytes % (A) 7 %; Neutrophils # (A) 6.7 k/uL (1.3-7.7); Neutrophils % (A) 73 %; Platelet Count 371 k/uL (150-450); RBC 3.86 m/uL (3.80-5.40); RDW 13.4 % (11.5-15.5); WBC 9.1 k/uL (3.8-10.6)
[2021-07-02 19:05] LABS: Partial Thromboplastin Time 24.8 sec (22.0-30.0); Prothrombin Time 10.5 sec (9.0-12.0)
[2021-07-02 19:17] LABS: Albumin 3.5 g/dL (3.5-5.0); Calcium 8.8 mg/dL (8.4-10.2); Potassium 4.4 mmol/L (3.5-5.1); Total Bilirubin 0.4 mg/dL (0.2-1.3)
--- NOTE | 2021-07-02 19:20 | CT ---
EXAMINATION TYPE: CT brain reema kelley DATE OF EXAM: 07/02/2021 COMPARISON: None HISTORY: fall, posterior head lac CT DLP: 1311.1 mGycm Automated exposure control for dose reduction was used. There is cerebral cortical atrophy. There is no mass effect nor midline shift. There is no sign of in tracranial hemorrhage. Calvarium is intact. The skull base is intact. There is normal aeration of the mastoid sinuses. External auditory canals appear normal. The cervical vertebra show subluxation deformities at C3-4 and C4-5 that measure 3 to 4 mm. The facet joints are intact. There is no compression fracture. I see no focal bone destruction. There is multi level cervical facet arthropathy. IMPRESSION: Cerebral atrophy. No acute intracranial abnormality. Degenerative spondylolisthesis at C3-4 and C4-5. No fracture seen of the cervical spine. Multilevel s pondylotic changes.
--- NOTE | 2021-07-02 20:05 | XR ---
EXAMINATION TYPE: DATE OF EXAM: 07/02/2021 COMPARISON: NONE HISTORY: Fall. Pain TECHNIQUE: Single view FINDINGS: Pelvic ring is intact. Proximal femurs and hip joints are intact. Sacroiliac joints are int act. There is slight lumbar levoscoliosis. IMPRESSION: No acute abnormality of the pelvis. No fracture. Mild lumbar levoscoliosis. Spondylotic changes in the lower lumbar spine.
--- NOTE | 2021-07-02 20:06 | XR ---
EXAMINATION TYPE: XR chest 1V portable DATE OF EXAM: 07/02/2021 COMPARISON: NONE HISTORY: Fall. Pain TECHNIQUE: Single view FINDINGS: There is no heart failure nor confluent pneumonic infiltrate. Costophrenic angles are clear . Thoracic aorta is atheromatous. IMPRESSION: No active cardiopulmonary disease.
--- NOTE | 2021-07-02 20:08 | XR ---
EXAMINATION TYPE: XR elbow complete LT DATE OF EXAM: 07/02/2021 COMPARISON: NONE HISTORY: Pain TECHNIQUE: 3 views FINDINGS: I see no fracture nor dislocation. Elbow joint spaces are fairly normal. There is no sign o f elbow joint effusion. Radial head is intact. IMPRESSION: No fracture seen.
[2021-07-02] MEDS ORDERED: BACITRACIN OINT 1 EACH PACKET TOPICAL ONE (20:26)
== END 2021-07-02 20:35 | disposition home or self-care (01) ==
LOC: EC 18:18
DX: S00.01XA Abrasion of scalp, initial encounter (principal); S40.022A Contusion of left upper arm, initial encounter; Z23 Encounter for immunization; F41.9 Anxiety disorder, unspecified; M19.90 Unspecified osteoarthritis, unspecified site; Z88.5 Allergy status to narcotic agent; Z90.710 Acquired absence of both cervix and uterus; W22.8XXA Striking against or struck by other objects, initial encounter
CPT/HCPCS: 36415; 70450; 71045; 72125; 72170; 80053; 85025; 85610; 85730; 90471; 90715; 99284

== ENCOUNTER → 2021-07-25 | Outpatient (CLI) | payer MEDICARE | END | disposition home or self-care (01) | LOC: LABWHC1 16:31 | PROVIDERS: ATTEND Nurse Practitioner | DX: Z20.822 Contact with and (suspected) exposure to COVID-19 (principal); R06.09 Other forms of dyspnea | CPT/HCPCS: 87502; U0003; C9803 ==

== ENCOUNTER → 2021-07-25 | Outpatient (CLI) | payer MEDICARE ==
--- NOTE | 2021-07-26 09:30 | XR ---
EXAMINATION TYPE: XR chest 2V DATE OF EXAM: 07/25/2021 COMPARISON: Chest x-ray 07/02/2021 HISTORY: Shortness of breath with exertion TECHNIQUE: Frontal and lateral views of the chest are obtained. FINDINGS: There is no focal air space opacity, pleural effusion, or pneumothorax seen. The cardiac silhouette size is within normal limits. Prominent lung volume may be indicative of underlying COPD. Aorta is dense. The osseous structures are intact, there is thoracic spondylosis. IMPRESSION: No acute cardiopulmonary process.
--- NOTE | 2021-07-26 09:37 | XR ---
2 view abdomen HISTORY: R 10.9, R06.09 2 views of the abdomen, no comparison There is a scoliotic curvature to the visualized spine with degenerative disc changes in the lumbar s pine. Lung bases are clear, hyperinflation suspected. No evident bowel obstruction or pneumoperitoneu m. Probable phleboliths, vascular calcifications noted within the pelvis. IMPRESSION: Nonobstructive bowel gas pattern. Scoliosis with associated degenerative disc disease.
== END | disposition home or self-care (01) ==
LOC: RADXRMAIN 16:43
PROVIDERS: ATTEND Nurse Practitioner
DX: R06.02 Shortness of breath (principal)
CPT/HCPCS: 71046; 74019

== ENCOUNTER → 2021-11-30 | Outpatient (CLI) | payer MEDICARE ==
--- NOTE | 2021-12-01 07:52 | CT ---
EXAMINATION TYPE: CT urogram wo/w con CT DLP: 687.7 mGycm, Automated exposure control for dose reduction was used. DATE OF EXAM: 11/30/2021 3:30 PM COMPARISON: CT abdomen pelvis most recent from 09/13/2019 CLINICAL INDICATION:Female, 86 years old with history of C67.9 bladder ca, bladder ca TECHNIQUE: Urogram with unenhanced, nephrographic and excretory phase imaging of the abdomen and pelvis using tw o doses of 70 cc of IV contrast for a total dose of one 140 cc of IV contrast. Coronal and sagittal r eformats were performed. One or more CT dose reduction strategies were utilized during this examinati on. 2D and 3D reconstructions are performed to assist visualization of the urinary tract on a [employer] workstation. FINDINGS: GENITOURINARY: RIGHT KIDNEY AND URETER: No calculi. No hydronephrosis or hydroureter. No renal mass or other lesions . No urothelial lesions: no filling defect, dilation, stricture or wall thickening. LEFT KIDNEY AND URETER: There is a enhancing mass within the left renal sinus measuring 3.5 x 2.8 x 3 .1 cm. The left renal pelvis and left ureter demonstrate soft tissue which appears contiguous with th e renal sinus mass. There is moderate left hydronephrosis without evidence of renal calculus. No sarah yed contrast is seen excreted from the left kidney. The remainder of the left ureter is not evaluated due to lack of excretion of contrast within the left system URINARY BLADDER: Layering excreted contrast is seen within the posterior bladder. The anterior bladde r wall is suboptimally evaluated given lack of contrast adjacent to it. No evidence of calculus. A fe w trabeculations are identified in the visualized posterior wall. REPRODUCTIVE: Uterus is not definitively visualized. ABDOMEN LIVER: Unremarkable. GALLBLADDER AND BILE DUCTS: Unremarkable PANCREAS: Unremarkable. SPLEEN: Unremarkable. ADRENAL GLANDS: Adrenal gland nodule stable back to 2019 measuring 1.2 cm. Additional soft tissue att enuation near the left adrenal gland is suboptimally evaluated given motion. STOMACH AND BOWEL: No evidence of bowel obstruction. PERITONEUM: No evidence of pneumoperitoneum, free fluid, or adenopathy. VASCULATURE: Atherosclerotic calcifications are present throughout the abdominal aorta and its branch es. MUSCULOSKELETAL: Multilevel degenerative changes are present throughout the thoracolumbar spine. Left iliac bony islands present. There is levoscoliosis apex at L4 SOFT TISSUE/ABDOMINAL WALL: Unremarkable. LOWER CHEST: Similar consolidation changes near the medial aspect of the lingula and middle lobe. LYMPH NODES: There is retroperitoneal lymphadenopathy is pronounced along the left aspect of the aort a measuring up to 1.2 cm in short axis. IMPRESSION: 1. 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 Additionally multiple retroperitoneal enlarged lymph nodes are present. These findings are c oncerning for primary malignancy with metastatic disease to the surrounding lymph nodes. 2. Moderate Left hydronephrosis or excreted IV contrast seen within left renal collecting system like ly secondary to obstruction from #1. 3. Limited evaluation of bladder due to opacification with excreted IV contrast. Few trabeculations s uggested. Consider direct visualization. 4. Nodularity to the left adrenal gland stable back to 2019.
== END | disposition home or self-care (01) ==
LOC: RADCTMAIN 13:10
PROVIDERS: ATTEND Urology
DX: C67.9 Malignant neoplasm of bladder, unspecified (principal); N13.30 Unspecified hydronephrosis; E27.8 Other specified disorders of adrenal gland; R59.0 Localized enlarged lymph nodes
CPT/HCPCS: 82565; 74400; 84520; 74178; 36415; Q9967

== ENCOUNTER 2021-12-26 09:58 | Observation (INO) | payer MEDICARE ==
[2021-12-26] MEDS ORDERED: SODIUM CHLORIDE 0.9% 1,000 ML IV STA (10:05)
--- NOTE | 2021-12-26 10:10 | ED ---
General Adult HPI - General Chief complaint: Arrhythmia/Palpitations Stated complaint: Fall Time Seen by Provider: 12/26/21 09:58 Source: patient, EMS, RN notes reviewed, old records reviewed Limitations: no limitations - History of Present Illness Initial comments: This is an 86-year-old female presents emergency Department complaining of being dizzy this morning and falling twice. Patient states she hurt her neck a little but she doesn't know if she hit on the floor she states she might of hit her head but is unsure. Patient complains of a little right lateral rib pain. Patient denies any abdominal pain. Patient denies any extremity pain. Patient states her lower back on the right also hurts a little. Patient is poor historian and she is very hard of hearing. - Related Data Home Medications Medication Instructions Recorded Confirmed Escitalopram [Lexapro] 5 mg PO DAILY 11/09/19 12/26/21 Levothyroxine Sodium [Synthroid] 50 mcg PO DAILY 11/09/19 12/26/21 Atorvastatin [Lipitor] 10 mg PO DAILY 12/12/20 12/26/21 Cephalexin [Keflex] 500 mg PO BID 12/26/21 12/26/21 Donepezil [Aricept] 10 mg PO DAILY 12/26/21 12/26/21 Ferrous Sulfate [Feosol] 325 mg PO DAILY 12/26/21 12/26/21 Meloxicam [Mobic] 7.5 mg PO HS 12/26/21 12/26/21 Allergies Allergy/AdvReac Type Severity Reaction Status Date / Time acetaminophen [From Percocet] Allergy Nausea & Verified 12/26/21 11:04 Vomiting codeine Allergy Nausea & Verified 12/26/21 11:04 Vomiting meperidine [From Demerol] Allergy Nausea & Verified 12/26/21 11:04 Vomiting oxycodone [From Percocet] Allergy Nausea & Verified 12/26/21 11:04 Vomiting Review of Systems ROS Statement: Those systems with pertinent positive or pertinent negative responses have been documented in the HPI. ROS Other: All systems not noted in ROS Statement are negative. Past Medical History Past Medical History: Osteoarthritis (OA), Sleep Apnea/CPAP/BIPAP Additional Past Medical History / Comment(s): SOME SHORT TERM MEMORY PROBLEMS STARTING ", C PAP MACHINE , " SOME KIDNEY PROBLEMS WITH PAIN -HAVING A TUBE PUT IN " History of Any Multi-Drug Resistant Organisms: None Reported Past Surgical History: Hysterectomy Additional Past Surgical History / Comment(s): CATARACT SURGERY- BILATERAL, C SECTION X2 Past Anesthesia/Blood Transfusion Reactions: No Reported Reaction Past Psychological History: Anxiety Smoking Status: Never smoker Past Alcohol Use History: Rare Past Drug Use History: None Reported - Past Family History Mother Family Medical History: No Reported History General Exam - General Exam Comments Initial Comments: GENERAL: Patient is well-developed and well-nourished. Patient is nontoxic and well- hydrated and is in mild distress. No signs of any head trauma ENT: Neck is soft and supple. No significant lymphadenopathy is noted. Oropharynx is clear. Moist mucous membranes. Patient has tenderness on the right side of her neck. There is no spinous process tenderness EYES: The sclera were anicteric and conjunctiva were pink and moist. Extraocular movements were intact and pupils were equal round and reactive to light. Eyelids were unremarkable. PULMONARY: Unlabored respirations. Good breath sounds bilaterally. No audible rales rho nchi or wheezing was noted. CARDIOVASCULAR: There is a regular rate and rhythm without any murmurs gallops or rubs. ABDOMEN: Soft and nontender with normal bowel sounds. SKIN: Skin is clear with no lesions or rashes and otherwise unremarkable. NEUROLOGIC: Patient is alert and oriented x3. Cranial nerves II through XII are grossly intact. Motor and sensory are also intact. Normal speech, volume and content. Symmetrical smile. MUSCULOSKELETAL: Normal extremities with adequate strength and full range of motion. No lower extremity swelling or edema. No calf tenderness. LYMPHATICS: No significant lymphadenopathy is noted PSYCHIATRIC: Normal psychiatric evaluation. Limitations: no limitations Course Vital Signs 12/26/21 12/26/21 09:59 10:20 Pulse Rate 150 H 65 Respiratory 18 Rate Blood Pressure 78/63 O2 Sat by Pulse 98 Oximetry Medical Decision Making - Medical Decision Making EKG shows atrial fibrillation with rapid ventricular response at 154 bpm QRS is 77 QT interval is 264 QTC is 351 per patient's EKG shows no ST segment elevation or depression. Repeat EKG after patient converted shows sinus rhythm at 65 bpm RI interval is 149 QRS is 83 QT interval 400 QTC is 411. Patient's EKG shows no ST segment elevation or depression. Patient's son arrived and stated that her blood pressure is normally very low typically around 90 systolic. Patient's chest x-ray showed no acute abnormality. Patient's head CT and C-spine showed no acute abnormality. I spoke with Dr. Poole he agreed to admit the patient admitted the patient I wrote admitting orders I consult to cardiology. - Lab Data Result diagrams: 12/26/21 10:15 12/26/21 10:15 Lab Results 12/26/21 12/26/21 12/26/21 Range/Units 10:15 10:15 10:15 WBC 13.8 H (3.8-10.6) k/uL RBC 3.92 (3.80-5.40) m/uL Hgb 10.1 L (11.4-16.0) gm/dL Hct 31.3 L (34.0-46.0) % MCV 80.0 (80.0-100.0) fL MCH 25.9 (25.0-35.0) pg MCHC 32.3 (31.0-37.0) g/dL RDW 13.0 (11.5-15.5) % Plt Count 638 H (150-450) k/uL MPV 6.5 Neutrophils % 84 % Lymphocytes % 7 % Monocytes % 6 % Eosinophils % 2 % Basophils % 1 % Neutrophils # 11.6 H (1.3-7.7) k/uL Lymphocytes # 0.9 L (1.0-4.8) k/uL Monocytes # 0.8 (0-1.0) k/uL Eosinophils # 0.2 (0-0.7) k/uL Basophils # 0.1 (0-0.2) k/uL Hypochromasia Slight PT 10.7 (9.0-12.0) sec INR 1.0 (<1.2) APTT 22.0 (22.0-30.0) sec Sodium 130 L (137-145) mmol/L Potassium 4.5 (3.5-5.1) mmol/L Chloride 97 L (98-107) mmol/L Carbon Dioxide 24 (22-30) mmol/L Anion Gap 9 mmol/L BUN 24 H (7-17) mg/dL Creatinine 1.02 (0.52-1.04) mg/dL Est GFR (CKD-EPI)AfAm 59 (>60 ml/min/1.73 sqM) Est GFR (CKD-EPI)NonAf 51 (>60 ml/min/1.73 sqM) Glucose 104 H (74-99) mg/dL Calcium 8.8 (8.4-10.2) mg/dL Magnesium 2.0 (1.6-2.3) mg/dL Total Bilirubin 0.6 (0.2-1.3) mg/dL AST 23 (14-36) U/L ALT 13 (4-34) U/L Alkaline Phosphatase 114 (38-126) U/L Troponin I (0.000-0.034) ng/mL Total Protein 6.0 L (6.3-8.2) g/dL Albumin 3.2 L (3.5-5.0) g/dL TSH 0.960 (0.465-4.680) mIU/L 12/26/21 Range/Units 10:15 WBC (3.8-10.6) k/uL RBC (3.80-5.40) m/uL Hgb (11.4-16.0) gm/dL Hct (34.0-46.0) % MCV (80.0-100.0) fL MCH (25.0-35.0) pg MCHC (31.0-37.0) g/dL RDW (11.5-15.5) % Plt Count (150-450) k/uL MPV Neutrophils % % Lymphocytes % % Monocytes % % Eosinophils % % Basophils % % Neutrophils # (1.3-7.7) k/uL Lymphocytes # (1.0-4.8) k/uL Monocytes # (0-1.0) k/uL Eosinophils # (0-0.7) k/uL Basophils # (0-0.2) k/uL Hypochromasia PT (9.0-12.0) sec INR (<1.2) APTT (22.0-30.0) sec Sodium (137-145) mmol/L Potassium (3.5-5.1) mmol/L Chloride (98-107) mmol/L Carbon Dioxide (22-30) mmol/L Anion Gap mmol/L BUN (7-17) mg/dL Creatinine (0.52-1.04) mg/dL Est GFR (CKD-EPI)AfAm (>60 ml/min/1.73 sqM) Est GFR (CKD-EPI)NonAf (>60 ml/min/1.73 sqM) Glucose (74-99) mg/dL Calcium (8.4-10.2) mg/dL Magnesium (1.6-2.3) mg/dL Total Bilirubin (0.2-1.3) mg/dL AST (14-36) U/L ALT (4-34) U/L Alkaline Phosphatase (38-126) U/L Troponin I 0.018 (0.000-0.034) ng/mL Total Protein (6.3-8.2) g/dL Albumin (3.5-5.0) g/dL TSH (0.465-4.680) mIU/L Disposition Clinical Impression: Atrial fibrillation with rapid ventricular response, Cervical strain, Near syncope Disposition: ADMITTED IP TO THIS HOSP Referrals: Nba Poole MD [Primary Care Provider] - 1-2 days Time of Disposition: 12:48
[2021-12-26 10:24] LABS: Basophils # (A) 0.1 k/uL (0-0.2); Basophils % (A) 1 %; Eosinophils # (A) 0.2 k/uL (0-0.7); Eosinophils % (A) 2 %; HCT 31.3 % (34.0-46.0); HGB 10.1 gm/dL (11.4-16.0); Hypochromasia Slight; Lymphocytes # (A) 0.9 k/uL (1.0-4.8); Lymphocytes % (A) 7 %; MCH 25.9 pg (25.0-35.0); MCHC 32.3 g/dL (31.0-37.0); Mean Platelet Volume 6.5; Monocytes # (A) 0.8 k/uL (0-1.0); Monocytes % (A) 6 %; Neutrophils # (A) 11.6 k/uL (1.3-7.7); Neutrophils % (A) 84 %; Platelet Count 638 k/uL (150-450); RBC 3.92 m/uL (3.80-5.40); WBC 13.8 k/uL (3.8-10.6)
--- NOTE | 2021-12-26 10:56 | XR ---
EXAMINATION TYPE: XR chest 2V DATE OF EXAM: 12/26/2021 COMPARISON: Chest x-ray July 25, 2021 HISTORY: Dysrhythmia. TECHNIQUE: Frontal and lateral views of the chest are obtained. FINDINGS: There are chronic parenchymal changes without suspicious focal air space opacity, pleural effusion, or pneumothorax seen. The cardiac silhouette size is mildly enlarged. The osseous struct ures are demineralized. IMPRESSION: Mild cardiomegaly and chronic changes without acute pulmonary process.
[2021-12-26 10:57] LABS: Prothrombin Time 10.7 sec (9.0-12.0)
[2021-12-26 11:05] LABS: Albumin 3.2 g/dL (3.5-5.0); Calcium 8.8 mg/dL (8.4-10.2); Potassium 4.5 mmol/L (3.5-5.1); Total Bilirubin 0.6 mg/dL (0.2-1.3)
--- NOTE | 2021-12-26 12:20 | CT ---
EXAMINATION TYPE: CT brain reema wo con DATE OF EXAM: 12/26/2021 COMPARISON: 07/02/2021 HISTORY: Fall, dizziness pain in head and neck, a fib CT DLP: 1257.[address] of the brain was performed. The ventricles, basal cisterns and sulci overlying the cerebral convexities demonstrate mild enlargem ent. There is no evidence for intracranial hemorrhage or sulcal effacement. There is decreased attenuatio n about the periventricular white matter and deep white matter of both cerebral hemispheres, compatib le with chronic small vessel ischemia. No mass effects are seen. If symptoms persist consider MRI. Osseous calvarium is intact. IMPRESSION: 1. Age related atrophic and chronic small vessel ischemic change without acute intracranial process seen at this time. CT Cervical Spine: Unenhanced CT of the cervical spine was performed with bone and soft tissue window settings submitted . Coronal and sagittal reconstruction is obtained. Unchanged from prior study is anterior subluxation of C4 on C5 approximately 3.5 mm. No acute subluxa tion is seen. Degenerative changes cervical apophyseal joints. No evidence for acute cervical fractur e . Scattered degenerative disc disease and spondylosis. Biapical scarring. IMPRESSION: 1. No evidence for acute fracture or subluxation of the cervical spine.
[2021-12-26] MEDS ORDERED: NITROGLYCERIN SL TABS 0.4 MG TAB SUBLINGUAL PRN (12:48)
--- NOTE | 2021-12-26 15:51 | P.HPIM ---
<Micah,Disha - Last Filed: 12/26/21 15:21> History of Present Illness H&P Date: 12/26/21 Chief Complaint: Arrhythmia Patient is a pleasantly confused 86-year-old female, presented to the emergency room with dizziness and falls. Patient was found to be in atrial fibrillation with rapid ventricular response, patient converted to normal sinus rhythm. Patient is a poor historian, unsure of how she fell but does report some neck pain and right lateral rib pain. CT of brain and cervical spine was negative for acute process. Chest x-ray shows mild cardiomegaly and chronic changes without acute pulmonary process. Cardiology was consulted. Patient has a pertinent medical history of osteoarthritis, sleep apnea, anxiety, and dementia. Patient recently had a CT urogram that found left renal sinus enhancing mass suggestive of primary malignancy with metastatic disease to the surrounding lymph nodes. 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 She was scheduled for for surgery with urology this Friday. Urology was consulted. Patient was seen and evaluated in ER, was unable to recall why she came to the ER. Only complaint is being hungry, will order diet. Review of Systems Patient with history of dementia, no family in the room. Poor historian, unable to answer questions. Past Medical History Past Medical History: Dementia, Osteoarthritis (OA), Sleep Apnea/CPAP/BIPAP Additional Past Medical History / Comment(s): SOME SHORT TERM MEMORY PROBLEMS STARTING ", C PAP MACHINE , " SOME KIDNEY PROBLEMS WITH PAIN -HAVING A TUBE PUT IN " History of Any Multi-Drug Resistant Organisms: None Reported Past Surgical History: Hysterectomy Additional Past Surgical History / Comment(s): CATARACT SURGERY- BILATERAL, C SECTION X2 Past Anesthesia/Blood Transfusion Reactions: No Reported Reaction Past Psychological History: Anxiety Smoking Status: Never smoker Past Alcohol Use History: Rare Past Drug Use History: None Reported - Past Family History Mother Family Medical History: No Reported History Additional Family Medical History / Comment(s): Mother lived to be 101 years old. Father Family Medical History: No Reported History Additional Family Medical History / Comment(s): Father lived to be 93 yrs old. Medications and Allergies Home Medications Medication Instructions Recorded Confirmed Type Escitalopram [Lexapro] 5 mg PO DAILY 11/09/19 12/26/21 History Levothyroxine Sodium [Synthroid] 50 mcg PO DAILY 11/09/19 12/26/21 History Atorvastatin [Lipitor] 10 mg PO DAILY 12/12/20 12/26/21 History Cephalexin [Keflex] 500 mg PO BID 12/26/21 12/26/21 History Donepezil [Aricept] 10 mg PO DAILY 12/26/21 12/26/21 History Ferrous Sulfate [Iron (65 MG 325 mg PO DAILY 12/26/21 12/26/21 History Elemental)] Meloxicam [Mobic] 7.5 mg PO HS 12/26/21 12/26/21 History Metoprolol Tartrate [Lopressor] 12.5 mg PO BID 30 Days #60 tab 12/27/21 Rx Allergies Allergy/AdvReac Type Severity Reaction Status Date / Time acetaminophen [From Percocet] Allergy Nausea & Verified 12/26/21 11:04 Vomiting codeine Allergy Nausea & Verified 12/26/21 11:04 Vomiting meperidine [From Demerol] Allergy Nausea & Verified 12/26/21 11:04 Vomiting oxycodone [From Percocet] Allergy Nausea & Verified 12/26/21 11:04 Vomiting Physical Exam Vitals: Vital Signs Pulse Pulse Resp BP Pulse Ox 12/26/21 13:05 61 18 97/59 99 12/26/21 10:20 65 12/26/21 10:15 140 H 12/26/21 09:59 150 H 18 78/63 98 Intake and Output 12/26/21 12/26/21 12/26/21 06:59 14:59 22:59 Other: Weight 54.431 kg - Constitutional General appearance: no acute distress - EENT Eyes: EOMI, PERRLA ENT: normal oropharynx Ears: bilateral: normal - Neck Neck: normal ROM Carotids: bilateral: upstroke normal Thyroid: bilateral: normal size - Respiratory Respiratory: bilateral: diminished - Cardiovascular Heart rate: 70 Rhythm: regular Heart sounds: normal: S1, S2 radial pulse Peripheral Pulses: bilateral: Normal - Gastrointestinal General gastrointestinal: normal bowel sounds, soft - Integumentary Bruising noted Integumentary: normal - Neurologic Neurologic: focal deficits - Musculoskeletal Musculoskeletal: generalized weakness - Psychiatric Patient is alert and oriented to self, unable to follow simple commands or answer questions appropriately. Easily confused Results CBC & Chem 7: 12/26/21 10:15 12/26/21 10:15 Labs: Abnormal Lab Results - Last 24 Hours (Table) 12/26/21 12/26/21 12/26/21 Range/Units 10:15 10:15 13:03 WBC 13.8 H (3.8-10.6) k/uL Hgb 10.1 L (11.4-16.0) gm/dL Hct 31.3 L (34.0-46.0) % Plt Count 638 H (150-450) k/uL Neutrophils # 11.6 H (1.3-7.7) k/uL Lymphocytes # 0.9 L (1.0-4.8) k/uL Sodium 130 L (137-145) mmol/L Chloride 97 L (98-107) mmol/L BUN 24 H (7-17) mg/dL Glucose 104 H (74-99) mg/dL Troponin I 0.054 H* (0.000-0.034) ng/mL Total Protein 6.0 L (6.3-8.2) g/dL Albumin 3.2 L (3.5-5.0) g/dL Chest x-ray: report reviewed Thrombosis Risk Factor Assmnt - DVT/VTE Prophylaxis DVT/VTE Prophylaxis: Contraindicated - See note (History of hematuria secondary to renal cancer) - Choose All That Apply Any of the Below Risk Factors Present?: Yes Other Risk Factors: Yes Each Risk Factor Represents 2 Points: Malignancy Each Risk Factor Represents 3 Points: Age 75 years or older Other congenital or acquired thrombophilia - If yes, enter type in comment: No Thrombosis Risk Factor Assessment Total Risk Factor Score: 5 Thrombosis Risk Factor Assessment Level: High Risk Assessment and Plan Assessment: Atrial fibrillation with rapid ventricular response Hypotension Falls at home Newly diagnosed Renal cancer, history of hematuria Dementia Hypothyroidism Hyperlipidemia Anxiety Osteoarthritis Obstructive sleep apnea History of GERD Plan: Patient is currently in sinus rhythm, awaiting cardiology recommendations Had surgery scheduled for Friday, urology consulted Has history of hematuria secondary to renal cancer, will wait for anticoagulant recommendations Will resume home medications Continue to monitor vital signs and cardiac rhythm Further recommendations to come based on patient's clinical course Full code Time with Patient: Greater than 30 <Nba Poole - Last Filed: 01/03/22 19:41> History of Present Illness I have personally seen and examined the patient, reviewed the documentation and agree with the assessment and plan as written. Number of minutes spent on the visit: Greater than 15. Results CBC & Chem 7: 12/27/21 08:33 12/27/21 08:33
[2021-12-26 17:57] LABS: Appearance,Urine Cloudy (Clear); Bilirubin,Urine Negative (Negative); Blood,Urine Large (Negative); Budding Yeast,Urine Few /hpf; Color,Urine Yellow; Glucose,Urine (UA) Negative (Negative); Ketones,Urine Negative (Negative); Leukocyte Esterase,Urine Large (Negative); Nitrite,Urine Negative (Negative); PH, Urine 6.5 (5.0-8.0); Protein,Urine 1+ (Negative); RBC,Urine 69 /hpf (0-5); Specific Gravity,Urine 1.011 (1.001-1.035); Urobilinogen,Urine <2.0 mg/dL (<2.0); WBC,Urine 162 /hpf (0-5)
[2021-12-26] MEDS: NITROGLYCERIN OINT 1 INCH/GM PACKET TOPICAL SCH ×2 (18:31→22:27)
[2021-12-26] MEDS ORDERED: MELOXICAM 7.5 MG TAB PO SCH (21:00)
[2021-12-26 23:14] VITALS: RESP 18
[2021-12-27] MEDS: NITROGLYCERIN OINT 1 INCH/GM PACKET TOPICAL SCH ×2 (05:50→12:23)
[2021-12-27 08:50] LABS: Basophils # (A) 0.1 k/uL (0-0.2); Basophils % (A) 1 %; Eosinophils # (A) 0.2 k/uL (0-0.7); Eosinophils % (A) 2 %; HCT 31.1 % (34.0-46.0); HGB 9.7 gm/dL (11.4-16.0); Hypochromasia Marked; Lymphocytes # (A) 1.1 k/uL (1.0-4.8); Lymphocytes % (A) 11 %; MCH 25.1 pg (25.0-35.0); MCHC 31.2 g/dL (31.0-37.0); MCV 80.5 fL (80.0-100.0); Monocytes # (A) 0.7 k/uL (0-1.0); Monocytes % (A) 7 %; Neutrophils # (A) 7.3 k/uL (1.3-7.7); Neutrophils % (A) 77 %; Platelet Count 660 k/uL (150-450); RBC 3.87 m/uL (3.80-5.40); RDW 13.5 % (11.5-15.5); WBC 9.5 k/uL (3.8-10.6)
[2021-12-27] MEDS ORDERED: ASPIRIN 81 MG PO SCH (09:00)
[2021-12-27] MEDS ORDERED: ESCITALOPRAM 5 MG TAB PO SCH (09:00)
[2021-12-27] MEDS ORDERED: ATORVASTATIN 10 MG TAB PO SCH (09:00)
[2021-12-27] MEDS ORDERED: LEVOTHYROXINE 50 MCG TAB PO SCH (09:00)
[2021-12-27] MEDS ORDERED: DONEPEZIL 10 MG TAB PO SCH (09:00)
[2021-12-27] MEDS ORDERED: FERROUS SULFATE 325 MG TAB PO SCH (09:00)
[2021-12-27] MEDS ORDERED: ASPIRIN 325 MG TAB PO SCH (09:00)
--- NOTE | 2021-12-27 09:00 | ECHOF ---
Referral Reason:new a fib MEASUREMENTS -------- HEIGHT: 157.5 cm WEIGHT: 54.4 kg BP: 126/63 IVSd: 1.1 cm (0.6 - 1.1) LVIDd: 2.8 cm (3.9 - 5.3) LVPWd: 1.3 cm (0.6 - 1.1) IVSs: 1.6 cm LVIDs: 1.6 cm LVPWs: 1.5 cm LAESV Index (A-L): 14.47 ml/m Ao Diam: 2.5 cm (2.0 - 3.7) AV Cusp: 1.9 cm (1.5 - 2.6) LA Diam: 2.9 cm (2.7 - 3.8) MV EXCURSION: 18.330 mm (> 18.000) MV EF SLOPE: 126 mm/s (70 - 150) EPSS: 0.5 cm MV E Alfred: 0.80 m/s MV DecT: 255 ms MV A Alfred: 0.98 m/s MV E/A Ratio: 0.82 RAP: 5.00 mmHg RVSP: 37.03 mmHg FINDINGS -------- Sinus rhythm. This was a technically adequate study. The left ventricular size is normal. There is moderate concentric left ventricular hypertrophy. O verall left ventricular systolic function is normal with, an EF between 55 - 60 %. The diastolic fi lling pattern is normal for the age of the patient 10.79. The right ventricle is normal in size. Normal LA size by volume 22+/-6 ml/m2. The right atrial size is normal. The aortic valve is trileaflet, and appears structurally normal. No aortic stenosis or regurgitation. The mitral valve leaflets are mildly thickened. Quwf-[id number]-[id number] mitral regurgitation is present. The tricuspid valve appears structurally normal. Mild tricuspid regurgitation present. There is m ild pulmonary hypertension. The right ventricular systolic pressure, as measured by Doppler, is 37. 03mmHg. There is no pulmonic regurgitation present. The aortic root size is normal. Normal inferior vena cava with normal inspiratory collapse consistent with estimated right atrial pre ssure of 5 mmHg. Echo free space indicative of a pericardial fat pad. CONCLUSIONS -------- 1. There is moderate concentric left ventricular hypertrophy. 2. Overall left ventricular systolic function is normal with, an EF between 55 - 60 %. 3. Normal LA size by volume 22+/-6 ml/m2. 4. The aortic valve is trileaflet, and appears structurally normal. No aortic stenosis or regurgitati on. 5. The mitral valve leaflets are mildly thickened. 6. Ukzv-md-vtsaifmt mitral regurgitation is present. 7. Mild tricuspid regurgitation present. 8. There is mild pulmonary hypertension. 9. Echo free space indicative of a pericardial fat pad. SENIOR MORTGAGE LOAN PROCESSOR: Hailey Pascal RDCS
[2021-12-27 09:17] LABS: ALT 14 U/L (4-34); AST 21 U/L (14-36); African American GFR (CKD) 58 (>60 ml/min/1.73 sqM); Albumin 3.1 g/dL (3.5-5.0); Alkaline Phosphatase 105 U/L (38-126); Anion Gap 6 mmol/L; Blood Urea Nitrogen 19 mg/dL (7-17); Calcium 9.1 mg/dL (8.4-10.2); Carbon Dioxide 27 mmol/L (22-30); Chloride 100 mmol/L (98-107); Glucose 124 mg/dL (74-99); Non-African American GFR(CKD) 50 (>60 ml/min/1.73 sqM); Potassium 4.4 mmol/L (3.5-5.1); Sodium 133 mmol/L (137-145); Total Bilirubin 0.5 mg/dL (0.2-1.3); Total Protein 6.1 g/dL (6.3-8.2)
[2021-12-27 10:15] VITALS: BMI 21.9
[2021-12-27] MEDS ORDERED: HEPARIN SODIUM 1,000 UN/ML (10ML VL) IV ONE (10:21)
[2021-12-27] MEDS ORDERED: HEPARIN SODIUM 1,000 UN/ML (10ML VL) IV PRN (10:21)
[2021-12-27] MEDS ORDERED: METOPROLOL TARTRATE 12.5 MG TAB PO SCH (10:30)
[2021-12-27] MEDS ORDERED: HEPARIN SOD,PORK IN 0.45% NACL 25,000 UNIT in 0.45% NACL 1 250ML.BAG IV SCH (10:30)
[2021-12-27 11:15] LABS: Glucose,Whole Blood 94 mg/dL (75-99)
--- NOTE | 2021-12-27 11:37 | P.CRDCN ---
History of Present Illness History of present illness: HISTORY OF PRESENTING ILLNESS This is a pleasant 86-year-old female past medical history significant for with bladder tumor plan for removal on 12/28/2021 at [facility], dementia, hypothyroidism, dyslipidemia, obstructive sleep apnea, former nicotine dependence. 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 We have been asked to see in consultation for atrial fibrillation with rapid ventricular response. Patient presents emergency department with complaints of dizziness and fall. She states that yesterday she was walking in her apartment, had episode of dizziness, lightheadedness and fell to the ground. She she did not have her life alert button by her and she crawled to it across the room and pressed it to notify staff at [facility] to help her. EMS was called. EKG was performed there and patient was in a fib with RVR HR 160s, also hypotensive BP 80s/40s. She was given 1L fluid bolus and brought to the emergency department. Unclear it patient loss consciousness, however, she denies this. On admission, patient was in atrial fibrillation with RVR HR 150s, spontaneously converted. DIAGNOSTICS On admission EKG reveals atrial fibrillation with rapid ventricular response, heart rate 154, no significant ST-T wave abnormalities suggest ischemia Repeat EKG after patient converted revealed sinus rhythm, HR 65 T wave inversion lead aVL, early repolarization in inferior leads, no ST segment elevation or depression. Echocardiogram revealed EF 5560 percent, mild to moderate mitral regurgitation, tricuspid regurgitation, mild pulmonary hypertension Telemetry tracings indicate sinus mechanism, heart rate in the 60s Chest xray no acute cardiopulmonary process CT brain no evidence of acute fracture or subluxation of the cervical spine, age-related atrophic and chronic small vessel ischemic change without acute intracranial process Laboratory reviewed, WBC 13.8, hemoglobin 10.1, platelets 368, sodium 130, potassium 4.5, BUN 24, serum creatinine 1.0, troponin 0.018, 0.054, TSH within normal limits, COVID-19 negative Current home medications include atorvastatin 10 mg daily, Meloxicam, Synthroid, Lexapro, Aricept, Keflex, ferrous sulfate REVIEW OF SYSTEMS At the time of my exam: CONSTITUTIONAL: Denies fever or chills. CARDIOVASCULAR: Denies chest pain, shortness of breath, orthopnea, PND or palpitations. RESPIRATORY: Denies cough. GASTROINTESTINAL: Denies abdominal pain, diarrhea, constipation, nausea or vomiting. MUSCULOSKELETAL: Denies myalgias. NEUROLOGIC: Denies numbness, tingling, headacbe or weakness. ENDOCRINE: Denies fatigue, weight change, polydipsia or polyurina. GENITOURINARY: Denies burning, hematuria or urgency with micturation. HEMATOLOGIC: Denies history of anemia or bleeding. PHYSICAL EXAMINATION Vitals blood pressure 97/59, heart rate 61, afebrile, oxygen saturation is greater than 92% room air CONSTITUTIONAL: No apparent distress. HEENT: Head is normocephalic. Pupils are equal, round. Sclerae anicteric. Mucous membranes of the mouth are moist. No JVD. No carotid bruit. CHEST EXAMINATION: Lungs are clear to auscultation. No chest wall tenderness is noted on palpation or with deep breathing. HEART EXAMINATION: Regular rate and rhythm. S1, S2 heard. Systolic ejection murmur, No gallops or rub. ABDOMEN: Soft, nontender. Positive bowel sounds. EXTREMITIES: 2+ peripheral pulses, no lower extremity edema and no calf te nderness. SKIN: warm dry NEUROLOGIC EXAMINATION: Patient is awake, alert and oriented x3. ASSESSMENT Dizziness Fall at home, unclear if syncope Paroxysmal atrial fibrillation rapid ventricular response -[id number] score 3, maintaining sinus mechanism Elevated troponin, not indicative of acute coronary syndrome, patient without any chest pain or shortness of breath, no ischemia noted on EKG, echocardiogram revealed a normal ejection fraction Hypotension History of dementia History of dyslipidemia History of hypothyroidism PLAN Start metoprolol tartrate 12.5mg BID Start IV Heparin drip Urology consulted, patient with planned bladder tumor removal tomorrow. Atrial fibrillation, risk of stroke and anticoagulation discussed with patient and patient's son Bertin, at this time, we will not start Eliquis due to planned surgery. Will check coverage for Eliquis with case management assistance if patient is started on medication in the near future Continue cardiac telemetry Further recommendations based on clinical course Nurse practitioner note has been reviewed by physician. Signing provider agrees with the documented findings, assessment, and plan of care. Past Medical History Past Medical History: Osteoarthritis (OA), Sleep Apnea/CPAP/BIPAP Additional Past Medical History / Comment(s): SOME SHORT TERM MEMORY PROBLEMS STARTING ", C PAP MACHINE , " SOME KIDNEY PROBLEMS WITH PAIN -HAVING A TUBE PUT IN " History of Any Multi-Drug Resistant Organisms: None Reported Past Surgical History: Hysterectomy Additional Past Surgical History / Comment(s): CATARACT SURGERY- BILATERAL, C SECTION X2 Past Anesthesia/Blood Transfusion Reactions: No Reported Reaction Past Psychological History: Anxiety Smoking Status: Never smoker Past Alcohol Use History: Rare Past Drug Use History: None Reported - Past Family History Mother Family Medical History: No Reported History Father Family Medical History: No Reported History Additional Family Medical History / Comment(s): Father lived to be 93 yrs old. Medications and Allergies Home Medications Medication Instructions Recorded Confirmed Type Escitalopram [Lexapro] 5 mg PO DAILY 11/09/19 12/26/21 History Levothyroxine Sodium [Synthroid] 50 mcg PO DAILY 11/09/19 12/26/21 History Atorvastatin [Lipitor] 10 mg PO DAILY 12/12/20 12/26/21 History Cephalexin [Keflex] 500 mg PO BID 12/26/21 12/26/21 History Donepezil [Aricept] 10 mg PO DAILY 12/26/21 12/26/21 History Ferrous Sulfate [Feosol] 325 mg PO DAILY 12/26/21 12/26/21 History Meloxicam [Mobic] 7.5 mg PO HS 12/26/21 12/26/21 History Allergies Allergy/AdvReac Type Severity Reaction Status Date / Time acetaminophen [From Percocet] Allergy Nausea & Verified 12/26/21 11:04 Vomiting codeine Allergy Nausea & Verified 12/26/21 11:04 Vomiting meperidine [From Demerol] Allergy Nausea & Verified 12/26/21 11:04 Vomiting oxycodone [From Percocet] Allergy Nausea & Verified 12/26/21 11:04 Vomiting Physical Exam Vitals: Vital Signs Pulse Pulse Resp BP Pulse Ox 12/26/21 13:05 61 18 97/59 99 12/26/21 10:20 65 12/26/21 10:15 140 H 12/26/21 09:59 150 H 18 78/63 98 Intake and Output 12/25/21 12/26/21 12/26/21 22:59 06:59 14:59 Other: Weight 54.431 kg Results 12/27/21 08:33 12/27/21 08:33 Cardiac Enzymes 12/26/21 12/26/21 12/26/21 Range/Units 10:15 10:15 13:03 AST 23 (14-36) U/L Troponin I 0.018 0.054 H* (0.000-0.034) ng/mL Coagulation 12/26/21 Range/Units 10:15 PT 10.7 (9.0-12.0) sec APTT 22.0 (22.0-30.0) sec CBC 12/26/21 Range/Units 10:15 WBC 13.8 H (3.8-10.6) k/uL RBC 3.92 (3.80-5.40) m/uL Hgb 10.1 L (11.4-16.0) gm/dL Hct 31.3 L (34.0-46.0) % Plt Count 638 H (150-450) k/uL Comprehensive Metabolic Panel 12/26/21 Range/Units 10:15 Sodium 130 L (137-145) mmol/L Potassium 4.5 (3.5-5.1) mmol/L Chloride 97 L (98-107) mmol/L Carbon Dioxide 24 (22-30) mmol/L BUN 24 H (7-17) mg/dL Creatinine 1.02 (0.52-1.04) mg/dL Glucose 104 H (74-99) mg/dL Calcium 8.8 (8.4-10.2) mg/dL AST 23 (14-36) U/L ALT 13 (4-34) U/L Alkaline Phosphatase 114 (38-126) U/L Total Protein 6.0 L (6.3-8.2) g/dL Albumin 3.2 L (3.5-5.0) g/dL Current Medications Generic Name Dose Route Start Last Admin Trade Name Freq PRN Reason Stop Dose Admin Aspirin 325 mg 12/27/21 09:00 Aspirin 325 Mg Tab PO DAILY JOELLEN Nitroglycerin 0.4 mg 12/26/21 12:48 Nitroglycerin Sl Tabs 0.4 Mg Tab SUBLINGUAL Q5M PRN Chest Pain Nitroglycerin 1 inch 12/26/21 18:00 Nitroglycerin Oint 1 Inch/Gm Packet TOPICAL Q6HR JOELLEN Intake and Output 12/25/21 12/26/21 12/26/21 22:59 06:59 14:59 Other: Weight 54.431 kg Patient Weight 12/27/21 06:59 Weight 54.431 kg 12/26/21 10:15 12/26/21 10:15
[2021-12-27 11:40] LABS: Partial Thromboplastin Time 25.9 sec (22.0-30.0); Prothrombin Time 11.1 sec (9.0-12.0)
--- NOTE | 2021-12-27 12:37 | P.DS ---
<Micah, - Last Filed: 12/27/21 12:29> Providers Expected date of discharge: 12/27/21 Hospital Course: Patient is a pleasantly confused 86-year-old female, presented to the emergency room with dizziness and falls. Patient was found to be in atrial fibrillation with rapid ventricular response, patient converted to normal sinus rhythm. Patient is a poor historian, unsure of how she fell but does report some neck pain and right lateral rib pain. CT of brain and cervical spine was negative for acute process. Chest x-ray shows mild cardiomegaly and chronic changes without acute pulmonary process. Cardiology was consulted. Patient has a pertinent medical history of osteoarthritis, sleep apnea, anxiety, and dementia. Patient recently had a CT urogram that found left renal sinus enhancing mass suggestive of primary malignancy with metastatic disease to the surrounding lymph nodes. 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 She was scheduled for for surgery with urology this Friday. Urology was consulted. Patient was seen and evaluated in ER, was unable to recall why she came to the ER. 12/27/2021 Patient was seen and examined at bedside. Continues to be pleasantly confused, oriented to self. Discussed case with cardiology and urology. Plan is to discharge home today and continue with planned outpatient urological surgery tomorrow. Patient will follow up with cardiology in the office 1 week after surgery to discuss starting anticoagulant. Currently in sinus rhythm. Metoprolol was added to medication regimen, stable to discharge home. Assessment: Paroxysmal atrial fibrillation with controlled ventricular response Hypotension Falls at home Newly diagnosed Renal cancer, history of hematuria Dementia Hypothyroidism Hyperlipidemia Anxiety Osteoarthritis Obstructive sleep apnea History of GERD Health Concerns: Multiple comorbidities Pertinent Studies: Chest x-ray found mild cardiomegaly and chronic changes without acute pulmonary process CT of brain and C-spine found age-related atrophic and chronic small vessel ischemic changes without acute intracranial process, and no evidence for acute fracture or subluxation of the cervical spine Echocardiogram showed moderate concentric left ventricular hypertrophy, overall left ventricular systolic function normal with EF of 55-60% Patient Condition at Discharge: Stable Plan - Discharge Summary Discharge Rx Participant: No New Discharge Prescriptions: New Metoprolol Tartrate [Lopressor] 12.5 mg PO BID 30 Days #60 tab Continue Escitalopram [Lexapro] 5 mg PO DAILY Levothyroxine Sodium [Synthroid] 50 mcg PO DAILY Atorvastatin [Lipitor] 10 mg PO DAILY Ferrous Sulfate [Iron (65 MG Elemental)] 325 mg PO DAILY Cephalexin [Keflex] 500 mg PO BID Donepezil [Aricept] 10 mg PO DAILY Meloxicam [Mobic] 7.5 mg PO HS Discharge Medication List Escitalopram [Lexapro] 5 mg PO DAILY 11/09/19 [History] Levothyroxine Sodium [Synthroid] 50 mcg PO DAILY 11/09/19 [History] Atorvastatin [Lipitor] 10 mg PO DAILY 12/12/20 [History] Cephalexin [Keflex] 500 mg PO BID 12/26/21 [History] Donepezil [Aricept] 10 mg PO DAILY 12/26/21 [History] Ferrous Sulfate [Iron (65 MG Elemental)] 325 mg PO DAILY 12/26/21 [History] Meloxicam [Mobic] 7.5 mg PO HS 12/26/21 [History] Metoprolol Tartrate [Lopressor] 12.5 mg PO BID 30 Days #60 tab 12/27/21 [Rx] Follow up Appointment(s)/Referral(s): Nba Poole MD [Primary Care Provider] - 1-2 days Dario Ruiz MD [STAFF PHYSICIAN] - 1 Week Patient Instructions/Handouts: A-fib (Atrial Fibrillation) (ED) Activity/Diet/Wound Care/Special Instructions: Cardiology recommendations -Continue metoprolol tartrate 12.5mg twice a day to control your heart rates. -We are recommending anticoagulation for your atrial fibrillation to prevent stroke, however, we cannot start it today due planned surgery on 12/28/2021 -Recommend follow up with Dr. Ruiz (the library aide) in the office in 1 week after your surgery and once we have clearance from Urology we will start anticoagulation. Discharge Disposition: HOME SELF-CARE <Nba Poole - Last Filed: 01/03/22 19:38> Providers Date of admission: 12/26/21 12:49 Attending physician: Nba Poole Consults: 12/26/21 12:49 Consult Physician Urgent Consulting Provider: [facility] Consult Reason/Comments: A. fib with rapid ventricular response Do you want consulting provider notified?: Yes 12/26/21 14:38 Consult Physician Routine Consulting Provider: Yifan Carter Consult Reason/Comments: scheduled bladder surgery Friday Do you want consulting provider notified?: Yes Primary care physician: Nba Poole I have personally seen and examined the patient, reviewed the documentation and agree with the assessment and plan as written. Number of minutes spent on the visit: Greater than 15.
[2021-12-27 12:59] VITALS: BP 116/67; PULSE 68; TEMP 97.2
[2021-12-27 16:21] LABS: Chol/HDL Ratio 2.58 Ratio; VLDL Calculation 15.98 mg/dL (5.00-40.00)
--- NOTE | 2021-12-27 17:40 | P.GSCN ---
History of Present Illness Consult date: 12/27/21 Reason for Consult: Bladder tumor Requesting physician: Nba Poole History of present illness: The patient is an 86-year-old white female admitted with dizziness and falls. She was found to be in atrial fibrillation with rapid ventricular response, but converted to normal sinus rhythm. Patient has a pertinent medical history of osteoarthritis, sleep apnea, anxiety, and dementia. 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 She is scheduled to undergo cystoscopic evaluation tomorrow by Dr. Carter. Review of Systems - Constitutional Denies chills, Denies fever - Neurological Reports vertigo Past Medical History Past Medical History: Osteoarthritis (OA), Sleep Apnea/CPAP/BIPAP Additional Past Medical History / Comment(s): SOME SHORT TERM MEMORY PROBLEMS STARTING ", C PAP MACHINE , " SOME KIDNEY PROBLEMS WITH PAIN -HAVING A TUBE PUT IN " History of Any Multi-Drug Resistant Organisms: None Reported Past Surgical History: Hysterectomy Additional Past Surgical History / Comment(s): CATARACT SURGERY- BILATERAL, C SECTION X2 Past Anesthesia/Blood Transfusion Reactions: No Reported Reaction Past Psychological History: Anxiety Smoking Status: Never smoker Past Alcohol Use History: Rare Past Drug Use History: None Reported - Past Family History Mother Family Medical History: No Reported History Additional Family Medical History / Comment(s): Mother lived to be 101 years old. Father Family Medical History: No Reported History Additional Family Medical History / Comment(s): Father lived to be 93 yrs old. Medications and Allergies Home Medications Medication Instructions Recorded Confirmed Type Escitalopram [Lexapro] 5 mg PO DAILY 11/09/19 12/26/21 History Levothyroxine Sodium [Synthroid] 50 mcg PO DAILY 11/09/19 12/26/21 History Atorvastatin [Lipitor] 10 mg PO DAILY 12/12/20 12/26/21 History Cephalexin [Keflex] 500 mg PO BID 12/26/21 12/26/21 History Donepezil [Aricept] 10 mg PO DAILY 12/26/21 12/26/21 History Ferrous Sulfate [Iron (65 MG 325 mg PO DAILY 12/26/21 12/26/21 History Elemental)] Meloxicam [Mobic] 7.5 mg PO HS 12/26/21 12/26/21 History Metoprolol Tartrate [Lopressor] 12.5 mg PO BID 30 Days #60 tab 12/27/21 Rx Allergies Allergy/AdvReac Type Severity Reaction Status Date / Time acetaminophen [From Percocet] Allergy Nausea & Verified 12/26/21 11:04 Vomiting codeine Allergy Nausea & Verified 12/26/21 11:04 Vomiting meperidine [From Demerol] Allergy Nausea & Verified 12/26/21 11:04 Vomiting oxycodone [From Percocet] Allergy Nausea & Verified 12/26/21 11:04 Vomiting Surgical - Exam Vital Signs Pulse Resp BP Pulse Ox 150 H 18 78/63 98 12/26/21 09:59 12/26/21 09:59 12/26/21 09:59 12/26/21 09:59 - General well developed, well nourished, no distress - Respiratory normal respiratory effort - Psychiatric oriented to time, oriented to person, oriented to place, speech is normal, m boerne intact Results - Labs 12/27/21 08:33 12/27/21 08:33 Abnormal Lab Results - Last 24 Hours (Table) 12/26/21 12/26/21 12/26/21 Range/Units 13:03 16:18 17:33 Hgb (11.4-16.0) gm/dL Hct (34.0-46.0) % Plt Count (150-450) k/uL Sodium (137-145) mmol/L BUN (7-17) mg/dL Glucose (74-99) mg/dL Troponin I 0.054 H* 0.091 H* (0.000-0.034) ng/mL Total Protein (6.3-8.2) g/dL Albumin (3.5-5.0) g/dL Urine Appearance Cloudy H (Clear) Urine Protein 1+ H (Negative) Urine Blood Large H (Negative) Ur Leukocyte Esterase Large H (Negative) Urine RBC 69 H (0-5) /hpf Urine WBC 162 H (0-5) /hpf Urine WBC Clumps Many H (None) /hpf Urine Yeast (Budding) Few H (None) /hpf 12/27/21 12/27/21 12/27/21 Range/Units 08:33 08:33 08:36 Hgb 9.7 L (11.4-16.0) gm/dL Hct 31.1 L (34.0-46.0) % Plt Count 660 H (150-450) k/uL Sodium 133 L (137-145) mmol/L BUN 19 H (7-17) mg/dL Glucose 124 H (74-99) mg/dL Troponin I 0.045 H* (0.000-0.034) ng/mL Total Protein 6.1 L (6.3-8.2) g/dL Albumin 3.1 L (3.5-5.0) g/dL Urine Appearance (Clear) Urine Protein (Negative) Urine Blood (Negative) Ur Leukocyte Esterase (Negative) Urine RBC (0-5) /hpf Urine WBC (0-5) /hpf Urine WBC Clumps (None) /hpf Urine Yeast (Budding) (None) /hpf Microbiology - Last 24 Hours (Table) 12/26/21 17:33 Urine Culture - Preliminary Urine,Clean Catch Diabetes panel 12/27/21 Range/Units 08:33 Sodium 133 L (137-145) mmol/L Potassium 4.4 (3.5-5.1) mmol/L Chloride 100 (98-107) mmol/L Carbon Dioxide 27 (22-30) mmol/L BUN 19 H (7-17) mg/dL Creatinine 1.03 (0.52-1.04) mg/dL Glucose 124 H (74-99) mg/dL Calcium 9.1 (8.4-10.2) mg/dL AST 21 (14-36) U/L ALT 14 (4-34) U/L Alkaline Phosphatase 105 (38-126) U/L Total Protein 6.1 L (6.3-8.2) g/dL Albumin 3.1 L (3.5-5.0) g/dL Calcium panel 12/27/21 Range/Units 08:33 Calcium 9.1 (8.4-10.2) mg/dL Albumin 3.1 L (3.5-5.0) g/dL Pituitary panel 12/27/21 Range/Units 08:33 Sodium 133 L (137-145) mmol/L Potassium 4.4 (3.5-5.1) mmol/L Chloride 100 (98-107) mmol/L Carbon Dioxide 27 (22-30) mmol/L BUN 19 H (7-17) mg/dL Creatinine 1.03 (0.52-1.04) mg/dL Glucose 124 H (74-99) mg/dL Calcium 9.1 (8.4-10.2) mg/dL Adrenal panel 12/27/21 Range/Units 08:33 Sodium 133 L (137-145) mmol/L Potassium 4.4 (3.5-5.1) mmol/L Chloride 100 (98-107) mmol/L Carbon Dioxide 27 (22-30) mmol/L BUN 19 H (7-17) mg/dL Creatinine 1.03 (0.52-1.04) mg/dL Glucose 124 H (74-99) mg/dL Calcium 9.1 (8.4-10.2) mg/dL Total Bilirubin 0.5 (0.2-1.3) mg/dL AST 21 (14-36) U/L ALT 14 (4-34) U/L Alkaline Phosphatase 105 (38-126) U/L Total Protein 6.1 L (6.3-8.2) g/dL Albumin 3.1 L (3.5-5.0) g/dL - Imaging CT scan - abdomen: report reviewed Assessment and Plan Plan: Cardiology wishes for the patient to be anticoagulated. The decision has been made for her to undergo surgery tomorrow as previously scheduled, and she will then be placed on anticoagulants post-operatively as soon as Dr. Carter feels this is appropriate.
== END 2021-12-27 14:58 | disposition home or self-care (01) ==
LOC: EC 09:58 → 3SCARD 12:49
PROVIDERS: ADMIT Family Medicine; ATTEND Family Medicine
DX: I48.0 Paroxysmal atrial fibrillation (principal); I95.9 Hypotension, unspecified; S16.1XXA Strain of muscle, fascia and tendon at neck level, initial encounter; R07.81 Pleurodynia; C65.2 Malignant neoplasm of left renal pelvis; I08.1 Rheumatic disorders of both mitral and tricuspid valves; R79.89 Other specified abnormal findings of blood chemistry; I27.20 Pulmonary hypertension, unspecified; H91.90 Unspecified hearing loss, unspecified ear; M19.90 Unspecified osteoarthritis, unspecified site; F41.9 Anxiety disorder, unspecified; I51.7 Cardiomegaly; F03.90 Unspecified dementia, unspecified severity, without behavioral disturbance, psychotic disturbance, mood disturbance, and anxiety; E03.9 Hypothyroidism, unspecified; E78.5 Hyperlipidemia, unspecified; G47.33 Obstructive sleep apnea (adult) (pediatric); K21.9 Gastro-esophageal reflux disease without esophagitis; W19.XXXA Unspecified fall, initial encounter; Z20.822 Contact with and (suspected) exposure to COVID-19; Z79.890 Hormone replacement therapy; Z79.1 Long term (current) use of non-steroidal anti-inflammatories (NSAID); Z79.899 Other long term (current) drug therapy; Z88.5 Allergy status to narcotic agent; Z88.6 Allergy status to analgesic agent; Z98.42 Cataract extraction status, left eye; Z98.41 Cataract extraction status, right eye; Z98.891 History of uterine scar from previous surgery; Z87.891 Personal history of nicotine dependence; Z90.710 Acquired absence of both cervix and uterus; Z85.51 Personal history of malignant neoplasm of bladder; Y93.01 Activity, walking, marching and hiking; Y92.009 Unspecified place in unspecified non-institutional (private) residence as the place of occurrence of the external cause
CPT/HCPCS: 96360; 96361; 99285; 36415; 93005 ×2; 93306; 80061; 80053 ×2; 83735; 84443; 84484 ×2; 85025 ×2; 85610 ×2; 85730 ×2; 81001; 87086; 87635; 71046; 72125; 70450; G0378 ×2

== ENCOUNTER 2022-03-04 11:40 | Inpatient (IN) | payer MEDICARE ==
[2022-03-04] MEDS ORDERED: SODIUM CHLORIDE 0.9% 1,000 ML IV STA (12:20)
[2022-03-04] MEDS ORDERED: DEXTROSE 5% IN WATER 250 ML with AMIODARONE 300 MG IV ONE (12:23)
[2022-03-04] MEDS ORDERED: DEXTROSE 5% IN WATER 100 ML with AMIODARONE 150 MG IV ONE (12:23)
[2022-03-04] MEDS ORDERED: AMIODARONE 360 MG in DEXTROSE 5% IN WATER 200 ML IV ONE ×2 (12:24)
--- NOTE | 2022-03-04 13:39 | ED ---
General Adult HPI - General Source: family, EMS, RN notes reviewed Mode of arrival: EMS Limitations: altered mental status <Varinder Mccloud - Last Filed: 03/04/22 15:11> <Cain Fuentes - Last Filed: 03/04/22 17:23> - General Chief complaint: Altered Mental Status Stated complaint: Altered mental status Time Seen by Provider: 03/04/22 12:20 - History of Present Illness Initial comments: 86-year-old female presents emergency from from assisted living for possible syncopal episode, fall, hypotension. Patient was found by EMS today have blood pressure systolic 60-70. Patient found to be very tachycardic. Patient does have some underlying dementia and does not remember much of this. Unclear she had a head injury. She does complain of mild right leg pain. No abdominal pain no shortness of breath no focal weakness. Son in the room does state that she had a similar episode in past that she was in A. fib but converted on her own on no medications no blood thinners noted. (Varinder Mccloud) - Related Data Home Medications Medication Instructions Recorded Confirmed Escitalopram [Lexapro] 5 mg PO DAILY 11/09/19 03/04/22 Levothyroxine Sodium [Synthroid] 50 mcg PO DAILY 11/09/19 03/04/22 Atorvastatin [Lipitor] 10 mg PO DAILY 12/12/20 03/04/22 Donepezil [Aricept] 10 mg PO DAILY 12/26/21 03/04/22 Ferrous Sulfate [Iron (65 MG 325 mg PO DAILY 12/26/21 03/04/22 Elemental)] Meloxicam [Mobic] 7.5 mg PO HS 12/26/21 03/04/22 Metoprolol Tartrate [Lopressor] 12.5 mg PO BID 03/04/22 03/04/22 Allergies Allergy/AdvReac Type Severity Reaction Status Date / Time codeine Allergy Nausea & Verified 03/04/22 13:28 Vomiting meperidine [From Demerol] Allergy Nausea & Verified 03/04/22 13:28 Vomiting oxycodone [From Percocet] Allergy Nausea & Verified 03/04/22 13:28 Vomiting Review of Systems ROS Other: All systems not noted in ROS Statement are negative. <Varinder Mccloud - Last Filed: 03/04/22 15:11> ROS Other: All systems not noted in ROS Statement are negative. <Cain Fuentes - Last Filed: 03/04/22 17:23> ROS Statement: Those systems with pertinent positive or pertinent negative responses have been documented in the HPI. Past Medical History Past Medical History: Osteoarthritis (OA), Sleep Apnea/CPAP/BIPAP Additional Past Medical History / Comment(s): SOME SHORT TERM MEMORY PROBLEMS STARTING ", C PAP MACHINE , " SOME KIDNEY PROBLEMS WITH PAIN -HAVING A TUBE PUT IN " History of Any Multi-Drug Resistant Organisms: None Reported Past Surgical History: Hysterectomy Additional Past Surgical History / Comment(s): CATARACT SURGERY- BILATERAL, C SECTION X2, Tumor removed from bladder December 2021, knee replacement, Past Anesthesia/Blood Transfusion Reactions: No Reported Reaction Past Psychological History: Anxiety Smoking Status: Former smoker Past Alcohol Use History: Rare Past Drug Use History: None Reported - Past Family History Mother Family Medical History: No Reported History Additional Family Medical History / Comment(s): Mother lived to be 101 years old. Father Family Medical History: No Reported History Additional Family Medical History / Comment(s): Father lived to be 93 yrs old. <Varinder Mccloud - Last Filed: 03/04/22 15:11> General Exam Limitations: altered mental status General appearance: alert, in no apparent distress Neck exam: Present: normal inspection. Absent: tenderness, meningismus, lymphadenopathy Respiratory exam: Present: normal lung sounds bilaterally. Absent: respiratory distress, wheezes, rales, rhonchi, stridor Cardiovascular Exam: Present: tachycardia, irregular rhythm, normal heart sounds. Absent: regular rate, normal rhythm, systolic murmur, diastolic murmur, rubs, gallop, clicks GI/Abdominal exam: Present: soft, normal bowel sounds. Absent: distended, tenderness, guarding, rebound, rigid Extremities exam: Present: other (Mild right tib-fib tenderness other extremity exam otherwise unremarkable) Neurological exam: Present: alert, CN II-XII intact. Absent: oriented X3 Skin exam: Present: warm, dry, intact, normal color. Absent: rash <Varinder Mccloud - Last Filed: 03/04/22 15:11> Course Vital Signs 03/04/22 03/04/22 03/04/22 11:40 12:30 12:49 Temperature 99 F Pulse Rate 140 H 62 60 Respiratory 18 18 18 Rate Blood Pressure 72/55 96/52 94/55 O2 Sat by Pulse 99 99 100 Oximetry 03/04/22 03/04/22 03/04/22 14:00 14:56 16:25 Temperature Pulse Rate 56 L 54 L 59 L Respiratory 18 18 18 Rate Blood Pressure 106/62 102/60 107/63 O2 Sat by Pulse 96 100 96 Oximetry Medical Decision Making - Lab Data Result diagrams: 03/04/22 12:47 03/04/22 12:47 <Varinder Mccloud - Last Filed: 03/04/22 15:11> - Lab Data Result diagrams: 03/04/22 12:47 03/04/22 12:47 <Cain Fuetnes - Last Filed: 03/04/22 17:23> - Medical Decision Making 86-year-old female presented from for hypertension, and tachycardia. Patient was in A. fib with RVR who converted on her own prior to medications. Patient did have an urine ordered. Patient's blood pressure improved after fluid bolus, conversion. Patient found to have hemoglobin of 6.6. I did discuss the son that patient had recent bladder surgery by local urologist she has known cancer. She has no rectal bleeding rank blood on rectal exam this is from chronic disease, recent surgery. Patient was transfused only admitted for further monitoring. (Varinder Mccloud) Case was discussed with Dr. Duff, who will admit for Dr. Poole. (Cain Fuentes) - Lab Data Lab Results 03/04/22 03/04/22 03/04/22 Range/Units 12:47 12:47 12:47 WBC 12.5 H (3.8-10.6) k/uL RBC 2.96 L (3.80-5.40) m/uL Hgb 6.6 L* (11.4-16.0) gm/dL Hct 21.2 L (34.0-46.0) % MCV 71.6 L (80.0-100.0) fL MCH 22.2 L (25.0-35.0) pg MCHC 31.0 (31.0-37.0) g/dL RDW 14.6 (11.5-15.5) % Plt Count 600 H (150-450) k/uL MPV 6.6 Neutrophils % 84 % Lymphocytes % 6 % Monocytes % 7 % Eosinophils % 1 % Basophils % 1 % Neutrophils # 10.5 H (1.3-7.7) k/uL Lymphocytes # 0.8 L (1.0-4.8) k/uL Monocytes # 0.9 (0-1.0) k/uL Eosinophils # 0.2 (0-0.7) k/uL Basophils # 0.1 (0-0.2) k/uL Hypochromasia Marked Microcytosis Moderate PT 11.7 (9.0-12.0) sec INR 1.1 (<1.2) APTT 27.3 (22.0-30.0) sec Sodium 129 L (137-145) mmol/L Potassium 4.5 (3.5-5.1) mmol/L Chloride 105 (98-107) mmol/L Carbon Dioxide 22 (22-30) mmol/L Anion Gap 2 mmol/L BUN 20 H (7-17) mg/dL Creatinine 0.93 (0.52-1.04) mg/dL Est GFR (CKD-EPI)AfAm 66 (>60 ml/min/1.73 sqM) Est GFR (CKD-EPI)NonAf 57 (>60 ml/min/1.73 sqM) Glucose 93 (74-99) mg/dL Plasma Lactic Acid Refugio (0.7-2.0) mmol/L Calcium 7.1 L (8.4-10.2) mg/dL Total Bilirubin 0.5 (0.2-1.3) mg/dL AST 17 (14-36) U/L ALT 7 (4-34) U/L Alkaline Phosphatase 90 (38-126) U/L Troponin I (0.000-0.034) ng/mL Total Protein 5.0 L (6.3-8.2) g/dL Albumin 2.3 L (3.5-5.0) g/dL Urine Color Urine Appearance (Clear) Urine pH (5.0-8.0) Ur Specific Leo (1.001-1.035) Urine Protein (Negative) Urine Glucose (UA) (Negative) Urine Ketones (Negative) Urine Blood (Negative) Urine Nitrite (Negative) Urine Bilirubin (Negative) Urine Urobilinogen (<2.0) mg/dL Ur Leukocyte Esterase (Negative) Urine RBC (0-5) /hpf Urine WBC (0-5) /hpf Ur Squamous Epith Cells (0-4) /hpf Amorphous Sediment (None) /hpf Urine Bacteria (None) /hpf Stool Occult Blood (Negative) Blood Type Confirm 03/04/22 03/04/22 03/04/22 Range/Units 12:47 12:47 12:47 WBC (3.8-10.6) k/uL RBC (3.80-5.40) m/uL Hgb (11.4-16.0) gm/dL Hct (34.0-46.0) % MCV (80.0-100.0) fL MCH (25.0-35.0) pg MCHC (31.0-37.0) g/dL RDW (11.5-15.5) % Plt Count (150-450) k/uL MPV Neutrophils % % Lymphocytes % % Monocytes % % Eosinophils % % Basophils % % Neutrophils # (1.3-7.7) k/uL Lymphocytes # (1.0-4.8) k/uL Monocytes # (0-1.0) k/uL Eosinophils # (0-0.7) k/uL Basophils # (0-0.2) k/uL Hypochromasia Microcytosis PT (9.0-12.0) sec INR (<1.2) APTT (22.0-30.0) sec Sodium (137-145) mmol/L Potassium (3.5-5.1) mmol/L Chloride (98-107) mmol/L Carbon Dioxide (22-30) mmol/L Anion Gap mmol/L BUN (7-17) mg/dL Creatinine (0.52-1.04) mg/dL Est GFR (CKD-EPI)AfAm (>60 ml/min/1.73 sqM) Est GFR (CKD-EPI)NonAf (>60 ml/min/1.73 sqM) Glucose (74-99) mg/dL Plasma Lactic Acid Refugio 0.9 (0.7-2.0) mmol/L Calcium (8.4-10.2) mg/dL Total Bilirubin (0.2-1.3) mg/dL AST (14-36) U/L ALT (4-34) U/L Alkaline Phosphatase (38-126) U/L Troponin I <0.012 (0.000-0.034) ng/mL Total Protein (6.3-8.2) g/dL Albumin (3.5-5.0) g/dL Urine Color Urine Appearance (Clear) Urine pH (5.0-8.0) Ur Specific Leo (1.001-1.035) Urine Protein (Negative) Urine Glucose (UA) (Negative) Urine Ketones (Negative) Urine Blood (Negative) Urine Nitrite (Negative) Urine Bilirubin (Negative) Urine Urobilinogen (<2.0) mg/dL Ur Leukocyte Esterase (Negative) Urine RBC (0-5) /hpf Urine WBC (0-5) /hpf Ur Squamous Epith Cells (0-4) /hpf Amorphous Sediment (None) /hpf Urine Bacteria (None) /hpf Stool Occult Blood (Negative) Blood Type Confirm O Negative 03/04/22 03/04/22 Range/Units 13:28 14:55 WBC (3.8-10.6) k/uL RBC (3.80-5.40) m/uL Hgb (11.4-16.0) gm/dL Hct (34.0-46.0) % MCV (80.0-100.0) fL MCH (25.0-35.0) pg MCHC (31.0-37.0) g/dL RDW (11.5-15.5) % Plt Count (150-450) k/uL MPV Neutrophils % % Lymphocytes % % Monocytes % % Eosinophils % % Basophils % % Neutrophils # (1.3-7.7) k/uL Lymphocytes # (1.0-4.8) k/uL Monocytes # (0-1.0) k/uL Eosinophils # (0-0.7) k/uL Basophils # (0-0.2) k/uL Hypochromasia Microcytosis PT (9.0-12.0) sec INR (<1.2) APTT (22.0-30.0) sec Sodium (137-145) mmol/L Potassium (3.5-5.1) mmol/L Chloride (98-107) mmol/L Carbon Dioxide (22-30) mmol/L Anion Gap mmol/L BUN (7-17) mg/dL Creatinine (0.52-1.04) mg/dL Est GFR (CKD-EPI)AfAm (>60 ml/min/1.73 sqM) Est GFR (CKD-EPI)NonAf (>60 ml/min/1.73 sqM) Glucose (74-99) mg/dL Plasma Lactic Acid Refugio (0.7-2.0) mmol/L Calcium (8.4-10.2) mg/dL Total Bilirubin (0.2-1.3) mg/dL AST (14-36) U/L ALT (4-34) U/L Alkaline Phosphatase (38-126) U/L Troponin I (0.000-0.034) ng/mL Total Protein (6.3-8.2) g/dL Albumin (3.5-5.0) g/dL Urine Color Yellow Urine Appearance Cloudy H (Clear) Urine pH 6.5 (5.0-8.0) Ur Specific Leo 1.007 (1.001-1.035) Urine Protein 1+ H (Negative) Urine Glucose (UA) Negative (Negative) Urine Ketones Negative (Negative) Urine Blood Large H (Negative) Urine Nitrite Negative (Negative) Urine Bilirubin Negative (Negative) Urine Urobilinogen <2.0 (<2.0) mg/dL Ur Leukocyte Esterase Small H (Negative) Urine RBC 59 H (0-5) /hpf Urine WBC 15 H (0-5) /hpf Ur Squamous Epith Cells 1 (0-4) /hpf Amorphous Sediment Occasional H (None) /hpf Urine Bacteria Rare H (None) /hpf Stool Occult Blood Negative (Negative) Blood Type Confirm Critical Care Time Critical Care Time: Yes Total Critical Care Time: 35 <Varinder Mccloud - Last Filed: 03/04/22 15:11> Disposition <Varinder Mccloud - Last Filed: 03/04/22 15:11> <Cain Fuentes - Last Filed: 03/04/22 17:23> Clinical Impression: Atrial fibrillation with rapid ventricular response, Anemia, Hypotension, Syncope Disposition: ADMITTED IP TO THIS HOSP Condition: Poor
[2022-03-04 13:53] LABS: Albumin 2.3 g/dL (3.5-5.0); Calcium 7.1 mg/dL (8.4-10.2); INR 1.1 (<1.2); Partial Thromboplastin Time 27.3 sec (22.0-30.0); Potassium 4.5 mmol/L (3.5-5.1); Prothrombin Time 11.7 sec (9.0-12.0); Total Bilirubin 0.5 mg/dL (0.2-1.3)
[2022-03-04 13:56] LABS: Basophils # (A) 0.1 k/uL (0-0.2); Basophils % (A) 1 %; Eosinophils # (A) 0.2 k/uL (0-0.7); Eosinophils % (A) 1 %; HCT 21.2 % (34.0-46.0); Hypochromasia Marked; Lymphocytes # (A) 0.8 k/uL (1.0-4.8); Lymphocytes % (A) 6 %; MCH 22.2 pg (25.0-35.0); MCV 71.6 fL (80.0-100.0); Mean Platelet Volume 6.6; Microcytosis Moderate; Monocytes # (A) 0.9 k/uL (0-1.0); Monocytes % (A) 7 %; Neutrophils # (A) 10.5 k/uL (1.3-7.7); Neutrophils % (A) 84 %; Platelet Count 600 k/uL (150-450); RBC 2.96 m/uL (3.80-5.40); RDW 14.6 % (11.5-15.5); WBC 12.5 k/uL (3.8-10.6)
[2022-03-04 14:04] LABS: HGB 6.6 gm/dL (11.4-16.0)
--- NOTE | 2022-03-04 14:42 | CT ---
EXAMINATION TYPE: CT brain reema kelley DATE OF EXAM: 03/04/2022 COMPARISON: 12/26/2021 HISTORY: Fall CT DLP: 1276.[address] of the brain was performed. The ventricles, basal cisterns and sulci overlying the cerebral convexities demonstrate mild to moder ate enlargement. There is no evidence for intracranial hemorrhage or sulcal effacement. There is decreased attenuatio n about the periventricular white matter and deep white matter of both cerebral hemispheres, compatib le with chronic small vessel ischemia. No mass effects are seen. If symptoms persist consider MRI. Osseous calvarium is intact. IMPRESSION: 1. Age related atrophic and chronic small vessel ischemic change without acute intracranial process seen at this time. CT Cervical Spine: Unenhanced CT of the cervical spine was performed with bone and soft tissue window settings submitted . Coronal and sagittal reconstruction is obtained. There is normal alignment and prevertebral soft tissues. Stable anterior subluxation of C4 and C5. No evidence for acute cervical fracture . Scattered degenerative disc disease and spondylosis. Biapic al scarring. IMPRESSION: 1. No evidence for acute fracture or subluxation of the cervical spine.
[2022-03-04] MEDS ORDERED: NALOXONE 0.4 MG/ML 1 ML VIAL IV PRN (15:13)
[2022-03-04 15:18] LABS: Amorphous Sediment,Urine Occasional /hpf; Appearance,Urine Cloudy (Clear); Bacteria,Urine Rare /hpf; Bilirubin,Urine Negative (Negative); Blood,Urine Large (Negative); Color,Urine Yellow; Glucose,Urine (UA) Negative (Negative); Ketones,Urine Negative (Negative); Leukocyte Esterase,Urine Small (Negative); Nitrite,Urine Negative (Negative); PH, Urine 6.5 (5.0-8.0); Protein,Urine 1+ (Negative); RBC,Urine 59 /hpf (0-5); Specific Gravity,Urine 1.007 (1.001-1.035); Squamous Epithelial Cell,Urine 1 /hpf (0-4); Urobilinogen,Urine <2.0 mg/dL (<2.0); WBC,Urine 15 /hpf (0-5)
--- NOTE | 2022-03-04 19:31 | XR ---
EXAMINATION TYPE: XR tibia fibula RT DATE OF EXAM: 03/04/2022 COMPARISON: NONE HISTORY: Altered mental status TECHNIQUE: 2 views FINDINGS: There is right knee prosthesis. Knee joint is intact. I see no fracture nor dislocation. An kle mortise is anatomic. IMPRESSION: Negative right tibia and fibula exam. No fracture
--- NOTE | 2022-03-04 19:33 | XR ---
EXAMINATION TYPE: XR chest 2V DATE OF EXAM: 03/04/2022 COMPARISON: 12/26/2021 HISTORY: Dysrhythmia TECHNIQUE: 2 views FINDINGS: Heart is normal. The lungs are clear of consolidation. There are no hilar masses. There are chest leads. Costophrenic angles are clear. IMPRESSION: No active cardiopulmonary disease. Normal heart. No change.
[2022-03-05 08:41] LABS: Anisocytosis Slight; Basophils # (A) 0.1 k/uL (0-0.2); Basophils % (A) 1 %; Eosinophils # (A) 0.2 k/uL (0-0.7); Eosinophils % (A) 2 %; HCT 29.4 % (34.0-46.0); Hypochromasia Marked; Lymphocytes % (A) 8 %; MCH 23.3 pg (25.0-35.0); MCHC 30.5 g/dL (31.0-37.0); MCV 76.4 fL (80.0-100.0); Mean Platelet Volume 6.6; Microcytosis Slight; Monocytes % (A) 8 %; Neutrophils # (A) 9.9 k/uL (1.3-7.7); Neutrophils % (A) 80 %; Platelet Count 643 k/uL (150-450); Poikilocytosis Slight; RBC 3.85 m/uL (3.80-5.40); RDW 16.5 % (11.5-15.5); WBC 12.3 k/uL (3.8-10.6)
[2022-03-05 10:14] LABS: Albumin 2.6 g/dL (3.5-5.0); Calcium 8.1 mg/dL (8.4-10.2); Potassium 4.6 mmol/L (3.5-5.1); Total Bilirubin 1.1 mg/dL (0.2-1.3); Total Protein 5.5 g/dL (6.3-8.2)
[2022-03-05] MEDS: LEVOTHYROXINE 50 MCG TAB PO SCH (11:25)
[2022-03-05] MEDS: METOPROLOL TARTRATE 12.5 MG TAB PO SCH ×2 (11:25→21:25)
[2022-03-05] MEDS: DONEPEZIL 10 MG TAB PO SCH (11:26)
[2022-03-05] MEDS: FERROUS SULFATE 325 MG TAB PO SCH (11:26)
[2022-03-05] MEDS: ATORVASTATIN 10 MG TAB PO SCH (11:26)
--- NOTE | 2022-03-05 11:38 | P.HPIM ---
History of Present Illness H&P Date: 03/05/22 Chief Complaint: altered mental status Patient is a pleasantly confused 86-year-old female that was referred to the emergency room with hypotension, tachycardia and altered mental status. Patient reported she also might have fallen, head CT and tibia and CT were negative for acute injury. Patient was found to be in A. fib RVR and and converted to sinus rhythm on own without medication. IV fluids were given and improved blood pressure levels. Hemoglobin was 6.6, blood was ordered and transfused. Occult was negative. Patient has a pertinent medical history of recently diagnosed kidney cancer, bladder tumor that was removed, atrial fibrillation, osteoarthritis, sleep apnea, and dementia. Previous admission was due to A. fib RVR, patient had converted on her own at that time as well. Family decided not to give patient eliquis due to frequent falls, thin skin and continued hematuria. Patient recently had follow-up with oncologist, who recommended MRI of the brain to rule out metastasis due to increasing confusion beyond baseline dementia. MRI is ordered. Cardiology consulted. Review of Systems ROS unobtainable: due to mental status Past Medical History Past Medical History: Atrial Fibrillation, Osteoarthritis (OA), Sleep Apnea/CPAP/BIPAP Additional Past Medical History / Comment(s): SOME SHORT TERM MEMORY PROBLEMS STARTING ", C PAP MACHINE , " SOME KIDNEY PROBLEMS WITH PAIN -HAVING A TUBE PUT IN ", bladder tumor, kidney cancer History of Any Multi-Drug Resistant Organisms: None Reported Past Surgical History: Hysterectomy Additional Past Surgical History / Comment(s): CATARACT SURGERY- BILATERAL, C SECTION X2, Tumor removed from bladder December 2021, knee replacement, Past Anesthesia/Blood Transfusion Reactions: No Reported Reaction Past Psychological History: Anxiety Smoking Status: Former smoker Past Alcohol Use History: Rare Past Drug Use History: None Reported - Past Family History Mother Family Medical History: No Reported History Additional Family Medical History / Comment(s): Mother lived to be 101 years old. Father Family Medical History: No Reported History Additional Family Medical History / Comment(s): Father lived to be 93 yrs old. Medications and Allergies Home Medications Medication Instructions Recorded Confirmed Type Escitalopram [Lexapro] 5 mg PO DAILY 11/09/19 03/04/22 History Levothyroxine Sodium [Synthroid] 50 mcg PO DAILY 11/09/19 03/04/22 History Atorvastatin [Lipitor] 10 mg PO DAILY 12/12/20 03/04/22 History Donepezil [Aricept] 10 mg PO DAILY 12/26/21 03/04/22 History Ferrous Sulfate [Iron (65 MG 325 mg PO DAILY 12/26/21 03/04/22 History Elemental)] Meloxicam [Mobic] 7.5 mg PO HS 12/26/21 03/04/22 History Metoprolol Tartrate [Lopressor] 12.5 mg PO BID 03/04/22 03/04/22 History Allergies Allergy/AdvReac Type Severity Reaction Status Date / Time codeine Allergy Nausea & Verified 03/04/22 13:28 Vomiting meperidine [From Demerol] Allergy Nausea & Verified 03/04/22 13:28 Vomiting oxycodone [From Percocet] Allergy Nausea & Verified 03/04/22 13:28 Vomiting Physical Exam Vitals: Vital Signs Temp Pulse Resp BP Pulse Ox 03/05/22 10:00 71 13 135/72 98 03/05/22 08:00 67 13 137/70 96 03/05/22 05:56 60 16 124/69 94 L 03/05/22 01:50 65 18 142/67 100 03/04/22 22:27 98.5 F 54 L 14 133/68 96 03/04/22 19:46 98.0 F 62 16 112/76 03/04/22 19:16 98.0 F 57 L 16 113/61 98 03/04/22 19:06 97.6 F 57 L 14 118/59 97 03/04/22 18:41 58 L 18 121/59 96 03/04/22 18:24 57 L 18 121/59 97 03/04/22 16:25 59 L 18 107/63 96 03/04/22 14:56 54 L 18 102/60 100 03/04/22 14:00 56 L 18 106/62 96 03/04/22 12:49 60 18 94/55 100 03/04/22 12:30 62 18 96/52 99 03/04/22 11:40 99 F 140 H 18 72/55 99 Intake and Output 03/04/22 03/05/22 03/05/22 22:59 06:59 14:59 Intake Total 310 Balance 310 Intake: Blood Product 310 Rc As-1 Unit 310 [id number] - Constitutional General appearance: average body habitus, no acute distress - EENT Eyes: EOMI, PERRLA ENT: normal oropharynx - Neck Neck: normal ROM - Respiratory Respiratory: bilateral: CTA - Cardiovascular Heart rate: 60 Rhythm: regular Heart sounds: normal: S1, S2 radial pulse Peripheral Pulses: bilateral: Normal - Gastrointestinal General gastrointestinal: normal bowel sounds, soft - Integumentary Integumentary: normal - Neurologic Neurologic: focal deficits - Musculoskeletal Musculoskeletal: generalized weakness - Psychiatric alert, oriented to self Results CBC & Chem 7: 03/05/22 07:11 03/05/22 07:11 Labs: Abnormal Lab Results - Last 24 Hours (Table) 03/04/22 03/04/22 03/04/22 Range/Units 12:47 12:47 13:28 WBC 12.5 H (3.8-10.6) k/uL RBC 2.96 L (3.80-5.40) m/uL Hgb 6.6 L* (11.4-16.0) gm/dL Hct 21.2 L (34.0-46.0) % MCV 71.6 L (80.0-100.0) fL MCH 22.2 L (25.0-35.0) pg MCHC (31.0-37.0) g/dL RDW (11.5-15.5) % Plt Count 600 H (150-450) k/uL Neutrophils # 10.5 H (1.3-7.7) k/uL Lymphocytes # 0.8 L (1.0-4.8) k/uL Sodium 129 L (137-145) mmol/L BUN 20 H (7-17) mg/dL Glucose (74-99) mg/dL Calcium 7.1 L (8.4-10.2) mg/dL Total Protein 5.0 L (6.3-8.2) g/dL Albumin 2.3 L (3.5-5.0) g/dL Urine Appearance Cloudy H (Clear) Urine Protein 1+ H (Negative) Urine Blood Large H (Negative) Ur Leukocyte Esterase Small H (Negative) Urine RBC 59 H (0-5) /hpf Urine WBC 15 H (0-5) /hpf Amorphous Sediment Occasional H (None) /hpf Urine Bacteria Rare H (None) /hpf Crossmatch 03/04/22 03/05/22 03/05/22 Range/Units 16:12 07:11 07:11 WBC 12.3 H (3.8-10.6) k/uL RBC (3.80-5.40) m/uL Hgb 9.0 L D (11.4-16.0) gm/dL Hct 29.4 L (34.0-46.0) % MCV 76.4 L (80.0-100.0) fL MCH 23.3 L (25.0-35.0) pg MCHC 30.5 L (31.0-37.0) g/dL RDW 16.5 H (11.5-15.5) % Plt Count 643 H (150-450) k/uL Neutrophils # 9.9 H (1.3-7.7) k/uL Lymphocytes # (1.0-4.8) k/uL Sodium 131 L (137-145) mmol/L BUN (7-17) mg/dL Glucose 72 L (74-99) mg/dL Calcium 8.1 L (8.4-10.2) mg/dL Total Protein 5.5 L (6.3-8.2) g/dL Albumin 2.6 L (3.5-5.0) g/dL Urine Appearance (Clear) Urine Protein (Negative) Urine Blood (Negative) Ur Leukocyte Esterase (Negative) Urine RBC (0-5) /hpf Urine WBC (0-5) /hpf Amorphous Sediment (None) /hpf Urine Bacteria (None) /hpf Crossmatch See Detail Microbiology - Last 24 Hours (Table) 03/04/22 13:28 Urine Culture - Preliminary Urine,Voided Chest x-ray: report reviewed Thrombosis Risk Factor Assmnt - DVT/VTE Prophylaxis DVT/VTE Prophylaxis: Contraindicated - See note (falls, hematuria) Assessment and Plan Assessment: Atrial fibrillation with RVR, converted to sinus rhythm Anemia, secondary to hematuria Hypotension, improving Renal cancer Dementia Recurrent urinary tract infections, awaiting culture results Osteoarthritis Plan: Cardiology consult for A. fib RVR Hemoglobin improved to 9.0 with blood transfusion, will monitor hemoglobin daily Blood pressure stable after fluid bolus and blood, continue to monitor MRI ordered, ruling out brain metastasis Continue to evaluate mentation Further recommendations to come based on patient's clinical course Time with Patient: Greater than 30
[2022-03-05] MEDS: ESCITALOPRAM 5 MG TAB PO SCH (12:14)
[2022-03-05] MEDS ORDERED: MELOXICAM 7.5 MG TAB PO SCH (21:00)
[2022-03-06] MEDS: LEVOTHYROXINE 50 MCG TAB PO SCH (05:38)
[2022-03-06] MEDS: DONEPEZIL 10 MG TAB PO SCH (09:08)
[2022-03-06] MEDS: ATORVASTATIN 10 MG TAB PO SCH (09:08)
[2022-03-06] MEDS: ESCITALOPRAM 5 MG TAB PO SCH (09:08)
[2022-03-06] MEDS: FERROUS SULFATE 325 MG TAB PO SCH (09:08)
[2022-03-06] MEDS: METOPROLOL TARTRATE 12.5 MG TAB PO SCH (09:08)
[2022-03-06 09:10] VITALS: BP 138/66; PULSE 79; RESP 18; TEMP 98.5
[2022-03-06 09:19] LABS: Anisocytosis Slight; Basophils # (A) 0.1 k/uL (0-0.2); Basophils % (A) 1 %; Eosinophils # (A) 0.2 k/uL (0-0.7); Eosinophils % (A) 2 %; HCT 30.5 % (34.0-46.0); HGB 9.2 gm/dL (11.4-16.0); Hypochromasia Marked; Lymphocytes # (A) 0.9 k/uL (1.0-4.8); Lymphocytes % (A) 7 %; MCH 22.6 pg (25.0-35.0); MCV 75.2 fL (80.0-100.0); Mean Platelet Volume 6.2; Microcytosis Slight; Monocytes # (A) 0.9 k/uL (0-1.0); Monocytes % (A) 8 %; Neutrophils # (A) 10.3 k/uL (1.3-7.7); Neutrophils % (A) 82 %; Platelet Count 645 k/uL (150-450); Poikilocytosis Slight; RBC 4.06 m/uL (3.80-5.40); RDW 16.7 % (11.5-15.5); WBC 12.6 k/uL (3.8-10.6)
[2022-03-06 09:31] LABS: Albumin 2.7 g/dL (3.5-5.0); Calcium 8.4 mg/dL (8.4-10.2); Total Bilirubin 0.7 mg/dL (0.2-1.3); Total Protein 5.6 g/dL (6.3-8.2)
--- NOTE | 2022-03-06 11:03 | P.CRDCN ---
History of Present Illness Consult date: 03/06/22 History of present illness: HISTORY OF PRESENT ILLNESS: This is a 86-year-old female with a past medical history significant for paroxysmal atrial fibrillation, recurrent falls, hypothyroidism, hyperlipidemia, and recently diagnosed kidney cancer with recent removal of a bladder tumor. Patient does not follow with a document controller. We have been asked to see the patient in consultation for A. fib with RVR. Patient examined at the bedside. Patient is confused at the time of my examination. She is unable to answer any questions. She is unable to give any pertinent medical history. The patient was found to be in A. fib with RVR when she presented to the hospital. She spontaneously converted to sinus mechanism. Her vital signs are stable this morning. Patient was found to have significant anemia on admission with hemoglobin of 6.6. She received RBC transfusion. Hemoglobin this morning 9.2. * EKG reveals A. fib with RVR * Chest xray negative for an acute process. * Laboratory data: Hemoglobin 12.6. Hemoglobin 9.2. Platelet count 645. Sodium 128. Potassium 4.0. BUN 13. Creatinine 0.87. Troponin negative 1. * Current home cardiac medications include metoprolol 12.5 mg twice a day and atorvastatin 10 mg daily * Most recent echocardiogram obtained in December 2021 revealed ejection fraction 55-60%, mild to moderate mitral regurgitation, mild tricuspid regurgitation, and mild pulmonary hypertension REVIEW OF SYSTEMS: At the time of my exam: CONSTITUTIONAL: Denies fever or chills. HEENT: Denies blurred vision, vision changes, or eye pain. Denies hemoptysis CARDIOVASCULAR: Denies chest pain. Denies orthopnea. Denies PND. Denies palpitations RESPIRATORY: Denies shortness of breath. GASTROINTESTINAL: Denies abdominal pain. Denies nausea or vomiting. HEMATOLOGIC: Denies bleeding disorders. GENITOURINARY: Denies any blood in urine. SKIN: Denies pruitis. Denies rash. PHYSICAL EXAM: VITAL SIGNS: Reviewed. GENERAL: Well-developed in no acute distress. HEENT: Head is normocephalic. Pupils are equal, round. Sclerae anicteric. Mucous membranes of the mouth are moist. Neck supple. No JVD or thyromegaly LUNGS: Respirations even and unlabored. Lungs essentially clear to auscultation bilaterally. HEART: Regular rate and rhythm. S1 and S2 heard. Systolic murmur noted ABDOMEN: Soft. Nondistended. Nontender. EXTREMITIES: Normal range of motion. No clubbing or cyanosis. Peripheral pulses intact. No lower extremity edema NEUROLOGIC: Confused ASSESSMENT: Acute anemia Hypotension, resolved Paroxysmal atrial fibrillation with RVR Recurrent falls Hyperlipidemia Recently diagnosed kidney cancer with recent removal of a bladder tumor PLAN: No need to repeat echo Continue home cardiac medications Patient not on long anticoagulation secondary to recurrent falls and now acute anemia No further inpatient recommendations from a cardiac standpoint We will sign off. Please reconsult if needed. Nurse practitioner note has been reviewed by physician. Signing provider agrees with the documented findings, assessment, and plan of care. Past Medical History Past Medical History: Atrial Fibrillation, Osteoarthritis (OA), Sleep Apnea/CPAP/BIPAP Additional Past Medical History / Comment(s): SOME SHORT TERM MEMORY PROBLEMS STARTING ", C PAP MACHINE , " SOME KIDNEY PROBLEMS WITH PAIN -HAVING A TUBE PUT IN ", bladder tumor, kidney cancer History of Any Multi-Drug Resistant Organisms: None Reported Past Surgical History: Hysterectomy Additional Past Surgical History / Comment(s): CATARACT SURGERY- BILATERAL, C SECTION X2, Tumor removed from bladder December 2021, knee replacement, Past Anesthesia/Blood Transfusion Reactions: No Reported Reaction Smoking Status: Former smoker - Past Family History Mother Family Medical History: No Reported History Additional Family Medical History / Comment(s): Mother lived to be 101 years old. Father Family Medical History: No Reported History Additional Family Medical History / Comment(s): Father lived to be 93 yrs old. Medications and Allergies Home Medications Medication Instructions Recorded Confirmed Type Escitalopram [Lexapro] 5 mg PO DAILY 11/09/19 03/04/22 History Levothyroxine Sodium [Synthroid] 50 mcg PO DAILY 11/09/19 03/04/22 History Atorvastatin [Lipitor] 10 mg PO DAILY 12/12/20 03/04/22 History Donepezil [Aricept] 10 mg PO DAILY 12/26/21 03/04/22 History Ferrous Sulfate [Iron (65 MG 325 mg PO DAILY 12/26/21 03/04/22 History Elemental)] Meloxicam [Mobic] 7.5 mg PO HS 12/26/21 03/04/22 History Metoprolol Tartrate [Lopressor] 12.5 mg PO BID 03/04/22 03/04/22 History Allergies Allergy/AdvReac Type Severity Reaction Status Date / Time codeine Allergy Nausea & Verified 03/04/22 13:28 Vomiting meperidine [From Demerol] Allergy Nausea & Verified 03/04/22 13:28 Vomiting oxycodone [From Percocet] Allergy Nausea & Verified 03/04/22 13:28 Vomiting Physical Exam Vitals: Vital Signs Temp Pulse Pulse Resp BP BP Pulse Ox 03/06/22 08:00 71 16 03/06/22 04:00 98.8 F 71 16 130/64 92 L 03/05/22 23:32 99.2 F 66 16 145/70 99 03/05/22 20:00 100 F H 77 18 151/75 92 L 03/05/22 16:38 98.7 F 58 L 18 148/92 99 03/05/22 16:00 68 18 131/75 97 03/05/22 12:00 62 128/80 03/05/22 10:00 71 13 135/72 98 Intake and Output 03/05/22 03/06/22 03/06/22 22:59 06:59 14:59 Intake Total 240 Balance 240 Intake: Oral 240 Other: Voiding Method Toilet Toilet Toilet # Voids 2 1 Weight 48.534 kg Results 03/06/22 09:01 03/06/22 09:01 Cardiac Enzymes 03/05/22 Range/Units 07:11 AST 17 (14-36) U/L CBC 03/05/22 Range/Units 07:11 WBC 12.3 H (3.8-10.6) k/uL RBC 3.85 (3.80-5.40) m/uL Hgb 9.0 L D (11.4-16.0) gm/dL Hct 29.4 L (34.0-46.0) % Plt Count 643 H (150-450) k/uL Comprehensive Metabolic Panel 03/05/22 Range/Units 07:11 Sodium 131 L (137-145) mmol/L Potassium 4.6 (3.5-5.1) mmol/L Chloride 102 (98-107) mmol/L Carbon Dioxide 22 (22-30) mmol/L BUN 16 (7-17) mg/dL Creatinine 0.84 (0.52-1.04) mg/dL Glucose 72 L (74-99) mg/dL Calcium 8.1 L (8.4-10.2) mg/dL AST 17 (14-36) U/L ALT 8 (4-34) U/L Alkaline Phosphatase 107 (38-126) U/L Total Protein 5.5 L (6.3-8.2) g/dL Albumin 2.6 L (3.5-5.0) g/dL Current Medications Generic Name Dose Route Start Last Admin Trade Name Freq PRN Reason Stop Dose Admin Atorvastatin Calcium 10 mg 03/05/22 10:00 03/05/22 11:26 Atorvastatin 10 Mg Tab PO 10 mg DAILY JOELLEN Administration Donepezil HCl 10 mg 03/05/22 10:00 03/05/22 11:26 Donepezil 10 Mg Tab PO 10 mg DAILY JOELLEN Administration Escitalopram Oxalate 5 mg 03/05/22 10:00 03/05/22 12:14 Escitalopram 5 Mg Tab PO 5 mg DAILY JOELLEN Administration Ferrous Sulfate 325 mg 03/05/22 10:00 03/05/22 11:26 Ferrous Sulfate 325 Mg Tab PO 325 mg DAILY JOELLEN Administration Levothyroxine Sodium 50 mcg 03/05/22 10:00 03/06/22 05:38 Levothyroxine 50 Mcg Tab PO 50 mcg DAILY@0630 JOELLEN Administration Meloxicam 7.5 mg 03/05/22 21:00 03/05/22 21:25 Meloxicam 7.5 Mg Tab PO 7.5 mg HS JOELLEN Administration Metoprolol Tartrate 12.5 mg 03/05/22 10:00 03/05/22 21:25 Metoprolol Tartrate 12.5 Mg Tab PO 12.5 mg BID JOELLEN Administration Naloxone HCl 0.2 mg 03/04/22 15:13 Naloxone 0.4 Mg/Ml 1 Ml Vial IV Q2M PRN Opioid Reversal Intake and Output 03/05/22 03/06/22 03/06/22 22:59 06:59 14:59 Intake Total 240 Balance 240 Intake: Oral 240 Other: Voiding Method Toilet Toilet Toilet # Voids 2 1 Weight 48.534 kg 03/05/22 07:11 03/05/22 07:11
--- NOTE | 2022-03-06 11:51 | P.DS ---
Providers Date of admission: 03/04/22 15:27 Expected date of discharge: 03/06/22 Attending physician: Nba Poole Consults: 03/05/22 11:16 Consult Physician Routine Consulting Provider: Ilia Crockett Consult Reason/Comments: afib, second episode Do you want consulting provider notified?: Yes Primary care physician: Nba Poole Hospital Course: Patient is a pleasantly confused 86-year-old female that was referred to the emergency room with hypotension, tachycardia and altered mental status. Patient reported she also might have fallen, head CT and tibia and CT were negative for acute injury. Patient was found to be in A. fib RVR and and converted to sinus rhythm on own without medication. IV fluids were given and improved blood pressure levels. Hemoglobin was 6.6, blood was ordered and transfused. Occult was negative. Patient has a pertinent medical history of recently diagnosed kidney cancer, bladder tumor that was removed, atrial fibrillation, osteoart hritis, sleep apnea, and dementia. Previous admission was due to A. fib RVR, patient had converted on her own at that time as well. Family decided not to give patient eliquis due to frequent falls, thin skin and continued hematuria. Patient recently had follow-up with oncologist, who recommended MRI of the brain to rule out metastasis due to increasing confusion beyond baseline dementia. MRI is ordered. Cardiology consulted. 03/06/22 Patient was seen and assessed at bedside, continues to be confused, alert and oriented to self. hemoglobin remains stable at 9.2. No episodes of afib noted. Cardiology cleared patient for discharge. Anticoagulant inappropriate at this time. Patient will be discharged after MRI is completed Assessment: Atrial fibrillation with RVR, converted to sinus rhythm Anemia, secondary to hematuria Hypotension, improving Renal cancer Dementia Recurrent urinary tract infections, awaiting culture results Osteoarthritis Health Concerns: multiple comorbidities Pertinent Studies: chest xray- negative for acute findings tibia/fibula xray- negative for fracture head CT- negative for acute findings Patient Condition at Discharge: Poor Plan - Discharge Summary Discharge Rx Participant: Yes New Discharge Prescriptions: Continue Escitalopram [Lexapro] 5 mg PO DAILY Levothyroxine Sodium [Synthroid] 50 mcg PO DAILY Atorvastatin [Lipitor] 10 mg PO DAILY Ferrous Sulfate [Iron (65 MG Elemental)] 325 mg PO DAILY Donepezil [Aricept] 10 mg PO DAILY Meloxicam [Mobic] 7.5 mg PO HS Metoprolol Tartrate [Lopressor] 12.5 mg PO BID Discharge Medication List Escitalopram [Lexapro] 5 mg PO DAILY 11/09/19 [History] Levothyroxine Sodium [Synthroid] 50 mcg PO DAILY 11/09/19 [History] Atorvastatin [Lipitor] 10 mg PO DAILY 12/12/20 [History] Donepezil [Aricept] 10 mg PO DAILY 12/26/21 [History] Ferrous Sulfate [Iron (65 MG Elemental)] 325 mg PO DAILY 12/26/21 [History] Meloxicam [Mobic] 7.5 mg PO HS 12/26/21 [History] Metoprolol Tartrate [Lopressor] 12.5 mg PO BID 03/04/22 [History] Follow up Appointment(s)/Referral(s): Nba Poole MD [Primary Care Provider] - 1-2 days [facility] Visiting Nurse, [NON-STAFF] - Discharge Disposition: HOME WITH HOME HEALTH SERVICES
--- NOTE | 2022-03-06 17:07 | MR ---
EXAMINATION TYPE: MR brain wo con DATE OF EXAM: 03/06/2022 COMPARISON: 09/28/2018 HISTORY: rule out mets. Multiplanar multiecho imaging of the brain performed without contrast. There is diffuse cerebral cortical atrophy. There is no mass effect or midline shift. There is no sig n of intracranial hemorrhage. Diffusion images show no sign of acute infarct. There is some mild line ar increased signal in the periventricular white matter on the T2 and FLAIR images. There is no evide nce of posterior fossa mass. There is some coalescent increased signal in the white matter around the occipital horns of the lateral ventricles. Brainstem is intact. Sella turcica appears normal. There is no evidence of orbital mass. IMPRESSION: Cerebral atrophy. White matter signal changes consistent with microvascular ischemia and age-related white matter atrophy that has progressed compared to old exam. This is more progressed in the occipit al lobes. No evidence of metastatic disease.
== END 2022-03-06 17:13 | disposition home health service (06) | DRG 309 ==
LOC: EC 11:40 → 3SCARD 15:27
PROVIDERS: ADMIT Family Medicine; ATTEND Family Medicine
PROC: 30233N1 Transfusion of Nonautologous Red Blood Cells into Peripheral Vein, Percutaneous Approach (ICD-10-PCS; principal; 2022-03-04)
DX: I48.0 Paroxysmal atrial fibrillation (principal); C64.9 Malignant neoplasm of unspecified kidney, except renal pelvis; F03.90 Unspecified dementia, unspecified severity, without behavioral disturbance, psychotic disturbance, mood disturbance, and anxiety; D64.9 Anemia, unspecified; R29.6 Repeated falls; I10 Essential (primary) hypertension; E03.9 Hypothyroidism, unspecified; E78.5 Hyperlipidemia, unspecified; I95.9 Hypotension, unspecified; R55 Syncope and collapse; R31.9 Hematuria, unspecified; R00.0 Tachycardia, unspecified; I08.1 Rheumatic disorders of both mitral and tricuspid valves; I27.20 Pulmonary hypertension, unspecified; F41.9 Anxiety disorder, unspecified; M19.90 Unspecified osteoarthritis, unspecified site; S09.90XA Unspecified injury of head, initial encounter; X58.XXXA Exposure to other specified factors, initial encounter; Z79.890 Hormone replacement therapy; Z85.528 Personal history of other malignant neoplasm of kidney; Z87.440 Personal history of urinary (tract) infections; Z87.891 Personal history of nicotine dependence; Z79.899 Other long term (current) drug therapy; Z90.710 Acquired absence of both cervix and uterus; Z96.659 Presence of unspecified artificial knee joint; Z88.5 Allergy status to narcotic agent; Z88.8 Allergy status to other drugs, medicaments and biological substances; Z98.42 Cataract extraction status, left eye; Z98.41 Cataract extraction status, right eye
CPT/HCPCS: 36415; 36430; 70450; 70551; 71046; 72125; 80053; 81001; 82272; 83605; 83735; 84484; 85025; 85610; 85730; 86850; 86900; 86901; 86920; 87077; 87086; 87186; 93005; 96360; 99291